=== PATIENT | male | born 1955 | race Caucasian/White ===

== ENCOUNTER 2018-11-03 09:47 | Inpatient (IN) | payer OTHER ==
[2018-11-03] VITALS (34 sets, daily range): BP systolic 75–113; BP diastolic 62–82; PULSE 62–91; RESP 11–24; Ht 170.2 cm; Wt 68.2 kg
[~2018-11-03] VITALS: Ht 170.2 cm; Wt 68.2 kg
[2018-11-03] MEDS ORDERED: ONDANSETRON 4 MG INJ IV STA (09:50)
[2018-11-03] MEDS ORDERED: morphine 4 MG/ML VIAL IV STA (09:50)
[2018-11-03] MEDS ORDERED: HEPARIN 1000 UNITS/ML 10 ML INJ IV STA (09:50)
[2018-11-03] MEDS ORDERED: FENTAnyl 50 MCG/ML VIAL ONE ×2 (09:54→12:07)
[2018-11-03] MEDS ORDERED: NITROGLYCERIN (IC) 100 MCG/ML INJ ONE (09:54)
[2018-11-03] MEDS ORDERED: HEPARIN 1000 UNITS/ML 10 ML INJ ONE (09:54)
[2018-11-03] MEDS ORDERED: MIDAZOLAM 1 MG/ML 2 ML INJ ONE (09:54)
[2018-11-03] MEDS ORDERED: IOHEXOL 350MG/ML 50 ML BTL ONE ×2 (09:54→10:28)
[2018-11-03] MEDS ORDERED: LIDOCAINE 1% (MDV) 20 ML INJ ONE (09:54)
[2018-11-03] MEDS ORDERED: IODIXANOL LOCM 100 ML BTL ONE ×2 (09:54→12:37)
[2018-11-03] MEDS ORDERED: VERAPAMIL 5 MG INJ ONE (09:55)
--- NOTE | 2018-11-03 09:55 | ERD ---
ER Documentation Chief Complaint Chief Complaint Chest pain HPI This is a 62-year-old male has a history of COPD and started having substernal chest pressure last night. The pain was off and on throughout the night and this morning he went to an urgent care and he was found to have inferior ST elevations and EMS was called. The patient was brought in by EMS yet he did not receive any nitroglycerin but because they were unable to get a line on him. He got substernal chest pressure without radiation and some shortness of breath. No diaphoresis no syncope. Pain is currently mild ROS All systems reviewed and are negative except as per history of present illness. Physical Exam Physical Exam Const: No acute distress Head: Atraumatic Eyes: Normal Conjunctiva ENT: Normal External Ears, Nose and Mouth. Neck: Full range of motion. No meningismus. Resp: Clear to auscultation bilaterally Cardio: Regular rate and rhythm, no murmurs Abd: Soft, non tender, non distended. Normal bowel sounds Skin: No petechiae or rashes Back: No midline or flank tenderness Ext: No cyanosis, or edema Neur: Awake and alert Psych: Normal Mood and Affect Procedures/MDM EKG: Rate/Rhythm: Inferior ST elevation QRS, ST, QT: NORMAL MT, QRS, QT] Impression: Inferior STEMI Code STEMI was called Dr. Murdock.was at bedside at 9:48 AM. Panel Saw Operator was activated and are at bedside. Critical Care Time: 30 minutes Treatments/Evaluations: Close monitoring and treatment of unstable vital signs, cardiorespiratory, and neurologic status, while maintaining tight balance of fluid, respiratory, and cardiac interventions. This time includes discussing the case with the patient and the patient's family. This time does not include all procedures stated elsewhere in this record. This time also includes reviewing old records, labs and radiological studies. This time includes examining and re- examining the patient. Additionally, this time also includes arranging care with admitting and consulting physicians. Departure Diagnosis: Primary Impression: STEMI (ST elevation myocardial infarction) Involved coronary artery: right coronary artery Qualified Codes: I21.11 - ST elevation (STEMI) myocardial infarction involving right coronary artery Condition: Serious DAWOOD PRUITT DO Nov 03, 2018 09:55
[2018-11-03] MEDS ORDERED: EPTIFIBATIDE 20 ML ONE (10:27)
[2018-11-03] MEDS ORDERED: BIVALIRUDIN 250MG /NS 50 ML 50 ML IVPB ONE ×3 (10:27→13:16)
[2018-11-03] MEDS ORDERED: EPTIFIBATIDE 100 ML IV ONE (10:27)
[2018-11-03] MEDS ORDERED: ONDANSETRON 4 MG INJ IV PRN ×2 (10:30→19:30)
[2018-11-03] MEDS ORDERED: ACETAMINOPHEN 325 MG TAB PO PRN ×2 (10:30→13:30)
[2018-11-03] MEDS ORDERED: PRASUGREL HYDROCHLORIDE 10 MG TABLET PO ONE (10:32)
[2018-11-03] MEDS ORDERED: ONDANSETRON 4 MG INJ ONE ×2 (10:32→11:42)
[2018-11-03] MEDS ORDERED: ALTEPLASE (CATHFLO) 2 MG INJ CATHETER SCH (11:30)
[2018-11-03] MEDS ORDERED: DOPamine-D5W 1.6 MG/ML 250 ML ONE (12:11)
[2018-11-03] MEDS ORDERED: SOD CHLORIDE 0.9% 1,000 ML IV SCH (13:05)
--- NOTE | 2018-11-03 13:27 | OPR ---
Date/Time of Note Date/Time of Note DATE: 11/03/18 TIME: 13:12 Operative Report Procedure Date: Nov 03, 2018 Preoperative Diagnosis INFERIOR STEMI Postoperative Diagnosis INFERIOR STEMI Operation/Procedure Performed PCI RCA Surgeon see signature line Bull Gang Worker n/ a Anesthesia Type: moderate sedation Estimated Blood Loss: minimal Transfusion none Specimen NONE Grafts/Implants none Complications none Procedure Description Violin Tutor: Kary Polk MD Indication: Inferior ST elevation myocardial infarction This is a 62-year-old gentleman who presented late after about more than 12 hours of chest pain and was found to have more than [address] elevation myocardial infarction with ongoing 9 out of 10 severe pain. Patient was immediately seen by myself in the emergency room is recommended to undergo emergent left heart catheterization coronary angiogram percutaneous coronary intervention Procure performed: #1 Emergent left heart catheterization and selective right and left coronary angiogram #2 Right femoral angiogram 3. Very complex but successful PTCA and stenting of proximal and mid right coronary artery using a 5 x 30 mm and a 5 x 26 mm dilute drug-eluting stents 4. PTCA stenting of the posterior descending artery using a 2.5 x 16 mm Synergy drug-eluting stent 5. Multiple thrombectomy of the right coronary artery and posterolateral artery 6. Ministration of intracoronary nitroglycerin, intracoronary verapamil, and intracoronary tPA 7. Moderate sedation for more than 150 minutes Findings: 1. Left main: is normal and birfurcates to LAD & LCX. 2. LAD: Proximally is aneurysmal and large with 30% % stenosis at proximal LAD, at mid LAD becomes normal size with no significant stenosis. It does not reach the apex 3. Left circumflex artery: is nondominant and small and gives out only one obtuse marginal. He has mild luminal irregularity only 4. RCA: is extremely large and dominant. it was 100% occluded proximally with large amount of thrombus throughout the whole vessel. YESICA 0 flow was noted in the beginning of the procedure. After successful PCI there was no significant residual stenosis left at the proximal mid and distal RCA. PDA had a poor flow (YESICA II ) despite stenting this lesion. RCA is extremely tortuous as well 5. LV EDP is 24 with no significant gradient across the aortic valve: Procedure in detail: Written informed consent with obtained after risks benefits and alternatives discussed with the patient in detail. risks including but not limited to risk of infection vascular complications, bleeding complications, WI stroke arrhythmia renal failure at even were discussed with the patient in detail. Patient was emergently brought into the cardiac skilled laborer and placed in supine position. Right and left groin area was prepped and draped in regular sterile fashion and then he was in anesthetized using 1% lidocaine. JL4 guiding catheter was advanced to engage the left main coronary artery angiographic view was obtained. JR4 GUIDING catheter was advanced and engaged into the right coronary artery and angiographic view was obtained. At this time we decided to perform PCI of the coronary artery. . BMW wire was used and advanced across the lesion and placed distal to the lesion. I used a 2.5 x 12 mm balloon which was placed across the lesion and predilated the v essel. Then I used a Pronto device and multiple runs of thrombectomy was done and multiple large amount of clots were removed. Still patient continue out the significant amount of clot. Another wire was used and with difficulty through the tortuosity cross into the PDA and this vessel was angioplastied by 2.5 mm x 12 mm balloon. Poor flow was noted here. A 2.5 x 16 mm stent with difficulty was advanced across the PDA deployed at 12 claribel. Angiography was obtained. Multiple rounds and thrombectomy with different Pronto thrombectomy device was used a large amount of clot was removed every time. Patient continued to generate significant amount of clot despite being on Angiomax drip, Integrilin drip. Multiple rounds of intracoronary verapamil and nitroglycerin was given as well. I had to give multiple rounds of intracoronary TPA as well as to get a better flow across the distal vessels. Finally proximal and mid RCA was angioplastied using a 3 5 and a 4 oh balloon. Angiography was obtained. Then 5 x 30 mm chronic drug-eluting stent was advanced across the mid RCA deployed at 16 and 18 claribel. Then another 5 x 26 mm drug-eluting stent was used placed proximal to the previous stent deployed at 18 claribel. Balloon was advanced and the stent balloon was inflated at 16 claribel in overlapping area. Finally I used a [id number] noncompliant balloon and postdilated the stent and up to 18 Claribel. Final angiographic view was obtained which showed YESICA-2-3 flow no evidence of dissection and no significant residual stenosis at the site of the stents. Right femoral angiogram was done a pigtail was advanced to engage the left ventricle hemodynamics as recorded by pullback aortic pressure was measured. Patient tolerated the procedure well with no complication. Patient is to be transferred to ICU in stable condition. contrast used: 220 Visipaque Conclusions: Successful complex PTCA lobectomy intracoronary TPA and finally stenting of the right coronary artery from 100% stenosis to no significant residual stenosis using two 5 mm drug-eluting stent stent. Recommendations: Aggressive medical therapy. aspirin indefinitely dual antiplatlet therapy with aspirin and Effient ICU care overnight. Integrilin overnight Angiomax for the next 3 hours KARY POLK MD [facility] KARY POLK MD Nov 03, 2018 13:27
--- NOTE | 2018-11-03 13:28 | CONS ---
Assessment/Plan Assessment/Plan Hospital Course (Demo Recall) Acute inferior lateral/posterior ST elevation myocardial infarction Status post highly complex PCI of the right coronary artery Dyslipidemia Ex-smoker History of DVT Nausea vomiting Recommendations: Continue with ICU care with Integrilin drip given large amount of thrombus. Aspirin and Effient will be continued Beta-dennis is not able to tolerated We will very closely monitor intensive care unit Echocardiogram has been ordered to be done number personally reviewed once is done More than 38 minutes of critical care time was for management treatment is critically ill patient excluding any procedures Thank you for his referral. We will continue to follow along with you KARY POPE MD [facility] Consultation Date/Type/Reason Admit Date/Time Date of Consultation: Nov 03, 2018 Type of Consult Cardiology Reason for Consultation INFERIOR STEMI Requesting Provider: DAWOOD PRUITT DO Date/Time of Note DATE: 11/03/18 TIME: 13:27 Hx of Present Illness Emergent interventional cardiology consultation note Chief complaint: Chest pain Reason for consult: Inferior ST elevation myocardial infarction History of present illness: Thank you for this referral. History was then from the patient discussion with staff and physician review of the old chart This is a 62-year-old gentleman with history of COPD emphysema, history of DVT in the past who presented to the emergency room this morning because of the chest pain which was left-sided severe 9 out of 10 that started last night. EKG done showed marked ST elevation's elevation ME. She was brought into the ER by interior design professional and code STEMI was activated. Patient was immediately seen by myself in the emergency room. EKG showed marked more than [address] elevation in the inferior leads consistent with severe inferior ST elevation myocardial infarction. Patient was emergently taken to the Classified Advertising Clerk angiography done by myself which showed a very large and dominant right coronary artery which was completely occluded with very large amount of intraluminal thrombus there. Patient required Angiomax drip Integrilin drip multiple intracoronary verapamil injection, multiple runs of thrombectomy, and even intracoronary TPA placement. Finally a 2 stent was placed in the RCA and 1. His posterior descending artery Patient is currently in the ICU. Complains of mostly nausea vomiting abdominal pain with no more of the chest p ain that he had prior to his heart attack Allergies: No known drug allergies Medications were reviewed as per medical reconciliation sheet Family history: Mother with coronary artery disease Social history: Ex-smoker. Uses marijuana. Past medical history: As above mentioned Review of system: Patient denies all others except for above-mentioned Past Medical History Home Meds Unable to Obtain Active Prescriptions or Reported Meds Medications Current Medications Ondansetron HCl (Zofran Inj) 4 mg ER BRIDGE PRN IV NAUSEA/VOMITING; Start 11/03/18 at 10:30; Stop 11/04/18 at 10:29 Acetaminophen (Tylenol Tab) 650 mg ER BRIDGE PRN PO .MILD PAIN 1-3 OR TEMP; Start 11/03/18 at 10:30; Stop 11/04/18 at 10:29 Miscellaneous Information (* Miscellaneous Pharmacy Order) Hold all Metformin ... ONCE ONCE XX ; Start 11/03/18 at 13:30; Stop 11/03/18 at 13:31; Status UNV Aspirin (Halfprin) 81 mg DAILY PO ; Start 11/04/18 at 09:00; Status UNV Prasugrel (Effient) 10 mg DAILY PO ; Start 11/03/18 at 13:30 Eptifibatide 100 ml @ 4.091 mls/ hr Q24H IV ; Start 11/03/18 at 13:05; Stop 11/04/18 at 12:04 Bivalirudin 250 mg/Sodium Chloride 500 ml @ 27.27 mls/ hr NOW IV ; Start 11/03/18 at 13:30; Stop 11/03/18 at 16:29; Status UNV Acetaminophen (Tylenol Tab) 650 mg Q4H PRN PO PAIN; Start 11/03/18 at 13:30; Status UNV Oxycodone/ Acetaminophen (Percocet (5/ 325)) 1 tab Q4H PRN PO PAIN; Start 11/03/18 at 13:30 Oxycodone/ Acetaminophen (Percocet (5/ 325)) 2 tab Q4H PRN PO PAIN; Start 11/03/18 at 13:30 Morphine Sulfate (morphine) 1 mg Q1H PRN IV PAIN; Start 11/03/18 at 13:30 Atorvastatin Calcium (Lipitor) 80 mg DAILY@21 PO ; Start 11/03/18 at 21:00; Status UNV Sodium Chloride 1,000 ml @ 100 mls/hr Q10H IV ; Start 11/03/18 at 13:05; Stop 11/03/18 at 23:04 Carvedilol (Coreg) 3.125 mg BID PO ; Start 11/03/18 at 21:00; Status UNV Allergies: Coded Allergies: Unknown: Unable to obtain (Unverified , 11/03/18) Social History Smoking Status: Former smoker Exam/Review of Systems Vital Signs Vitals Vital Signs Date Temp Pulse Resp B/P (MAP) Pulse Ox O2 O2 Flow FiO2 Time Delivery Rate 11/03/18 81 24 120/89 100 Nasal 3.0 09:55 (99) Cannula 11/03/18 98.5 09:47 Exam Exam General: Severe distress in the morning prior to the coronary angiogram. Currently less distress HEENT: NC/AT. pupils are equal. round. NECK: NO JVD. no stridor. CV: RRR. systolic murmur; no gallop or rubs. PULM: no wheezing or rhonchi. GI: SOFT, NT, ND, no rebound or guarding Extremity: trace B/L LE edema. no clubbing. neuro: awake and alert, OX3. Psych: Anxious rectal: deferred : normal EKG prior to intervention has shown normal sinus rhythm with about [address] elevation reciprocal changes. Consider inferolateral ST elevation myocardial infarction. As well as posterior myocardial infarction. EKG postprocedure showed inferior infarct with about [address] elevations very early Labs Result Diagram: 11/03/18 0952 11/03/18 0952 Results 24hrs Laboratory Tests Test 11/03/18 09:52 White Blood Count 15.2 H Red Blood Count 4.85 Hemoglobin 14.9 Hematocrit 45.7 Mean Corpuscular Volume 94.2 Mean Corpuscular Hemoglobin 30.7 Mean Corpuscular Hemoglobin Concent 32.6 Red Cell Distribution Width 11.9 Platelet Count 359 Mean Platelet Volume 8.9 Immature Granulocytes % 0.700 H Neutrophils % 82.6 H Lymphocytes % 9.3 L Monocytes % 7.1 Eosinophils % 0.0 Basophils % 0.3 Nucleated Red Blood Cells % 0.0 Immature Granulocytes # 0.110 H Neutrophils # 12.6 H Lymphocytes # 1.4 Monocytes # 1.1 H Eosinophils # 0.0 Basophils # 0.0 Nucleated Red Blood Cells # 0.0 Prothrombin Time 12.5 Prothrombin Time Ratio 1.0 INR International Normalized Ratio 0.92 Activated Partial Thromboplast Time 23.0 Sodium Level 135 Potassium Level 5.2 H Chloride Level 98 Carbon Dioxide Level 24 Anion Gap 13 Blood Urea Nitrogen 22 H Creatinine 1.21 Est Glomerular Filtrat Rate mL/min > 60 Glucose Level 145 Calcium Level 9.8 Troponin I 13.900 *H Medications Medications Current Medications Ondansetron HCl (Zofran Inj) 4 mg ER BRIDGE PRN IV NAUSEA/VOMITING; Start 11/03/18 at 10:30; Stop 11/04/18 at 10:29 Acetaminophen (Tylenol Tab) 650 mg ER BRIDGE PRN PO .MILD PAIN 1-3 OR TEMP; Start 11/03/18 at 10:30; Stop 11/04/18 at 10:29 Miscellaneous Information (* Miscellaneous Pharmacy Order) Hold all Metformin ... ONCE ONCE XX ; Start 11/03/18 at 13:30; Stop 11/03/18 at 13:31; Status UNV Aspirin (Halfprin) 81 mg DAILY PO ; Start 11/04/18 at 09:00; Status UNV Prasugrel (Effient) 10 mg DAILY PO ; Start 11/03/18 at 13:30 Eptifibatide 100 ml @ 4.091 mls/ hr Q24H IV ; Start 11/03/18 at 13:05; Stop 11/04/18 at 12:04 Bivalirudin 250 mg/Sodium Chloride 500 ml @ 27.27 mls/ hr NOW IV ; Start 11/03/18 at 13:30; Stop 11/03/18 at 16:29; Status UNV Acetaminophen (Tylenol Tab) 650 mg Q4H PRN PO PAIN; Start 11/03/18 at 13:30; Status UNV Oxycodone/ Acetaminophen (Percocet (5/ 325)) 1 tab Q4H PRN PO PAIN; Start 11/03/18 at 13:30 Oxycodone/ Acetaminophen (Percocet (5/ 325)) 2 tab Q4H PRN PO PAIN; Start 08/12 at 13:30 Morphine Sulfate (morphine) 1 mg Q1H PRN IV PAIN; Start 11/03/18 at 13:30 Atorvastatin Calcium (Lipitor) 80 mg DAILY@21 PO ; Start 11/03/18 at 21:00; Status UNV Sodium Chloride 1,000 ml @ 100 mls/hr Q10H IV ; Start 11/03/18 at 13:05; Stop 11/03/18 at 23:04 Carvedilol (Coreg) 3.125 mg BID PO ; Start 11/03/18 at 21:00; Status KANV KARY POPE MD Nov 03, 2018 13:28
[2018-11-03] MEDS: EPTIFIBATIDE 100 ML IV SCH (13:30)
[2018-11-03] MEDS ORDERED: OXYCODONE/ACETAMINOPHEN (5/325) TAB PO PRN ×2 (13:30)
[2018-11-03] MEDS ORDERED: BIVALIRUDIN 250 MG in SOD CHLORIDE 0.9% 500 ML IV SCH (13:30)
[2018-11-03] MEDS: morphine 2 MG INJ IV PRN ×4 (14:03→23:21)
--- NOTE | 2018-11-03 15:25 | RADRPT ---
Vent Rate: 78 bpm RR Interval: 0 msec KS Interval: 156 msec QRS Duration: 94 msec QT Interval: 368 msec QTC Interval: 419 msec P-R-T [place]: 74 - -37 - 73 degrees Normal sinus rhythm Left axis deviation RSR ` orattern in V1 suggests right ventricular conduction delay Lateral infarct , possibly acute Inferior-posterior infarct , possibly acute ACUTE DE Abnormal ECG Electronically Signed By: Magdy Torres
[2018-11-03] MEDS ORDERED: ZOLPIDEM 5 MG TAB PO PRN (17:00)
[2018-11-03] MEDS: PRASUGREL HYDROCHLORIDE 10 MG TABLET PO SCH (17:53)
--- NOTE | 2018-11-03 18:09 | HP ---
DATE OF ADMISSION: 11/03/2018 PRESENTING COMPLAINT: Chest pain. HISTORY OF PRESENTING COMPLAINT: A 62-year-old male whose past medical history is positive for COPD, who presented to the emergency room today with intermittent chest pain that actually started a few d ays ago, but seemed to get worse last night. The patient has few times ____ to wake up from sleep fr om the chest pain and first thing this morning he said he goes on urgent care to get assessed. [facility] his E[facility] was found to be abnormal and so he was sent to the emergency room. In the [facility] room, the EKG was done again and he was found to have an ST elevation myocardial infarction barrera ggestive of an inferior wall MT and code STEMI was activated. [facility] general lab[facility]. In the warehouse general laborer, he was found to have diffuse coronary artery disease and there was 100% occlusion in the large, dominant RCA with a large amount of thrombus. This is likely the culprit le vitaly and PCI was done successfully without residual stenosis. At this time, he is being observed in the intensive care unit in followup. The patient had some shortness of breath, ____. No cough, no f ever. No passing out episode. No lower extremity edema. No dysuria or hematuria. No melenic stool s. No history of nausea, vomiting. PAST MEDICAL HISTORY: COPD. HOME MEDICATIONS: The patient has no documented home medications. FAMILY HISTORY: No family history of premature coronary artery disease. SOCIAL HISTORY: Remote smoker. Last cigarette use was about 6 to 7 years ago. He also has a remote history of substance use, occasional alcohol drinker. ALLERGIES: HE HAS NO KNOWN DRUG ALLERGIES. PHYSICAL EXAMINATION VITAL SIGNS: Temperature 97.8, pulse 75, respirations 14, blood pressure 101/63, saturations 96% on room air. GENERAL: The patient is alert and oriented, in no distress, currently somewhat lethargic. HEENT: Head is normocephalic without evidence of trauma. Pupils are equal, round and reactive. Muc ous membranes are moist. There is no scleral jaundice. Conjunctivae are pallor. Posterior pharynx is clear of erythema and exudate. NECK: Supple and nontender. CHEST: Clear to auscultation. Diminished breath sounds bilaterally. CARDIOVASCULAR: Heart sounds S1 and S2. No added sounds or murmurs. ABDOMEN: Soft, nontender, nondistended. There is no lower extremity edema. SKIN: Devoid of rash or jaundice. LABORATORY VALUES: Following pertinent findings were noted on admission with a potassium of 5.2, BUN of 22. His hematology: He had a leukocytosis of 15,000 with neutrophil predominance without bandem ia. Troponin was initially 13.9 on admission. It went up as high as 341. Creatinine kinase is 5757 . Triglyceride level is elevated at 244, total cholesterol was also elevated at 214, LDL is elevated at 32. IMAGING: He had a chest x-ray that showed mild cardiomegaly and EKG consistent with inferior wall my ocardial infarction. ASSESSMENT AND PLAN: A 62-year-old male who presented with intermittent chest pain in midsternal reg ion currently admitted to the ICU and managed as follows: 1. Inferior wall ST elevation myocardial infarction, status post emergent left heart catheterization that found culprit lesion of 100% occluded RCA with large amount of thrombus, status post successful PCI. Cardiology final recommendations include aggressive medical therapy, indefinite use of aspirin , double antiplatelet therapy with aspirin and Effient and Angiomax for the next 3 hours. 2. Somewhat of chronic obstructive pulmonary disease/emphysema. No gross evidence of exacerbation a t this time. Bronchodilator therapy as needed. 3. Reactive leukocytosis, likely secondary to #1: Monitor. 4. Hyperkalemia: Improved on subsequent BMP. 5. Rhabdomyolysis: Trend levels, gentle hydration as tolerated. 6. Dyslipidemia with hypertriglyceridemia and elevated total cholesterol as well as a LDL not at goa l: The patient is on high dose statin therapy. 7. Transaminitis: We will trend. It could be reactive. 8. Rule out diabetes mellitus and thyroid disease as well with hemoglobin A1c and TSH. DISPOSITION: Continue ICU overnight monitoring. Reevaluate in the morning. Cardiology also will fo llow. We appreciate the emergency input. Further interventions will depend on his clinical course. Please note that the patient's AST is also more than twice ALT. This could be related to his rhabdo myolysis. We will also screen for hepatitis and consider getting liver ultrasound if levels do not t rend down. Dictated By: BECKI CANTU MD BA/RABIA Conf#: [id number] DID#: [id number] CC: KARY POPE MD;*[facility]*
[2018-11-03] MEDS ORDERED: ATROPINE 1 MG/10 ML SYRINGE ONE (18:14)
[2018-11-03] MEDS ORDERED: ATORVASTATIN 80 MG TAB PO SCH (21:00)
[2018-11-03] MEDS ORDERED: NITROGLYCERIN 50 MG/D5W (PMX) 250 ML IV SCH (21:00)
[2018-11-03] MEDS ORDERED: NITROGLYCERIN 50 MG/D5W (PMX) 250 ML ONE (21:00)
[2018-11-03] MEDS: DOCUSATE SODIUM 100 MG CAP PO SCH (21:06)
[2018-11-03] MEDS ORDERED: ACETAMINOPHEN 1000MG/100ML IV 100 ML IVPB ONE (21:30)
[2018-11-03] MEDS: NITROGLYCERIN (SL) 0.4 MG TAB SL PRN ×3 (21:36→21:59)
[2018-11-04] VITALS (36 sets, daily range): BP systolic 75–111; BP diastolic 46–92; PULSE 85–121; RESP 14–33
[2018-11-04] MEDS: EPTIFIBATIDE 100 ML IV SCH (00:35)
[2018-11-04] MEDS ORDERED: CEPASTAT LOZENGE MT PRN (01:00)
[2018-11-04] MEDS ORDERED: LORAZEPAM 2 MG INJ IV ONE (01:30)
[2018-11-04] MEDS: morphine 2 MG INJ IV PRN ×3 (02:00→13:47)
--- NOTE | 2018-11-04 07:07 | CONS ---
Consult Date/Type/Reason Admit Date/Time Nov 03, 2018 at 10:06 Initial Consult Date 11/03/18 Type of Consultation: cv Requesting Provider: DAWOOD PRUITT DO Date/Time of Note DATE: 11/04/18 TIME: 07:03 Subjective Interventional cardiology follow-up progress note Subjective: Discussed with multiple staff and physicians. Telemetry was reviewed. Patient remains in normal sinus rhythm/sinus tachycardia Patient complains of multiple pain including his abdomen. Also chest pain which appears to be mostly pleuritic and different his [place]/presentation pain Patient has been started on nitroglycerin drip overnight. Objective: General: Appears agitated and in distress HEENT: NC/AT. pupils are equal. round. NECK: NO JVD. no stridor. CV: RRR. systolic murmur; no gallop or rubs. PULM: Rhonchi GI: SOFT, + tender to palpation, ND, no rebound or guarding Extremity: trace B/L LE edema. no clubbing. neuro: awake and alert, OX3. Psych: Agitated rectal: deferred : normal Vascular: Right femoral no bleeding no hematoma no bruit noted EKG from November 21, 2018 was reviewed which shows sinus tachycardia. Inferior infarct age undetermined. ST elevation has significantly decreased compared to the prior to the PCI Chest x-ray done November 04, 2018 shows:1. Cardiomegaly.2. Mild patchy bibasilar atelectasis. Objective Vitals Vital Signs Date Temp Pulse Resp B/P (MAP) Pulse Ox O2 O2 Flow FiO2 Time Delivery Rate 11/04/18 109 33 111/88 100 Nasal 06:00 (96) Cannula 11/04/18 98.0 04:00 11/03/18 5.0 21:00 Intake and Output 11/03/18 11/03/18 11/04/18 1515:00 23:00 07:00 IntakeIntake Total 97.27 ml 754.27 ml 68.5 ml OutputOutput Total 300 ml 250 ml 180 ml BalanceBalance -202.73 ml 504.27 ml -111.5 ml Results/Medications Result Diagram: 11/04/18 0431 11/04/18 0432 Results 24 hrs Laboratory Tests Test 11/03/18 09:52 11/03/18 14:10 11/04/18 04:31 11/04/18 04:32 White Blood Count 15.2 H 18.1 H Red Blood Count 4.85 3.91 L Hemoglobin 14.9 12.2 L Hematocrit 45.7 37.7 L Mean Corpuscular 94.2 96.4 Volume Mean Corpuscular 30.7 31.2 Hemoglobin Mean Corpuscular 32.6 32.4 Hemoglobin Concent Red Cell 11.9 12.4 Distribution Width Platelet Count 359 194 # Mean Platelet Volume 8.9 10.0 Immature 0.700 H 0.600 H Granulocytes % Neutrophils % 82.6 H 77.3 H Lymphocytes % 9.3 L 9.4 L Monocytes % 7.1 12.4 H Eosinophils % 0.0 0.1 Basophils % 0.3 0.2 Nucleated Red Blood 0.0 0.0 Cells % Immature 0.110 H 0.100 H Granulocytes # Neutrophils # 12.6 H 14.0 H Lymphocytes # 1.4 1.7 Monocytes # 1.1 H 2.2 H Eosinophils # 0.0 0.0 Basophils # 0.0 0.0 Nucleated Red Blood 0.0 0.0 Cells # Prothrombin Time 12.5 Prothrombin Time 1.0 Ratio INR International 0.92 Normalized Ratio Activated 23.0 Partial Thromboplast Time Sodium Level 135 135 137 Potassium Level 5.2 H 4.7 4.8 Chloride Level 98 103 100 Carbon Dioxide Level 24 22 28 Anion Gap 13 10 9 Blood Urea Nitrogen 22 H 20 23 H Creatinine 1.21 0.87 1.12 Est Glomerular > 60 > 60 > 60 Filtrat Rate mL/min Glucose Level 145 114 111 Calcium Level 9.8 8.6 9.0 Troponin I 13.900 *H 341.000 *H 173.000 *H Magnesium Level 2.1 2.0 Total Bilirubin 0.5 0.8 Direct Bilirubin 0.00 0.00 Indirect Bilirubin 0.5 0.8 Aspartate Amino 547 H 659 H Transf (AST/SGOT) Alanine 83 H 117 H Aminotransferase (AL T/SGPT) Alkaline Phosphatase 64 60 Creatine Kinase 5757 H 5334 H Creatine Kinase 6.2 6.0 Index Creatinine Kinase MB 357.00 H 320.00 H (Mass) Total Protein 6.6 6.7 Albumin 3.9 4.0 Globulin 2.70 2.70 Albumin/Globulin 1.44 1.48 Ratio Triglycerides Level 244 H 168 H Cholesterol Level 214 H 190 LDL Cholesterol, 132 123 Calculated HDL Cholesterol 33 33 Cholesterol/HDL 6.4 5.7 Ratio Free Thyroxine 0.74 L Hepatitis B Surface NEGATIVE Antigen Hepatitis B Core NEGATIVE Total Antibody Hepatitis C Antibody NEGATIVE B-Type Natriuretic 1510 H Peptide Thyroid Stimulating 1.460 Hormone (TSH) Hepatitis B Surface NEGATIVE Antibody Home Meds Unable to Obtain Active Prescriptions or Reported Meds Medications Current Medications Aspirin (Halfprin) 81 mg DAILY PO ; Start 11/04/18 at 09:00 Prasugrel (Effient) 10 mg DAILY PO Last administered on 11/03/18at 17:53; Admin Dose 10 MG; Start 11/03/18 at 13:30 Eptifibatide 100 ml @ 4.091 mls/ hr Q24H IV Last administered on 11/04/18at 00:35; Admin Dose 4.091 MLS/HR; Start 11/03/18 at 13:05; Stop 11/04/18 at 13:00 Acetaminophen (Tylenol Tab) 650 mg Q4H PRN PO PAIN; Start 11/03/18 at 13:30 Oxycodone/ Acetaminophen (Percocet (5/ 325)) 1 tab Q4H PRN PO PAIN; Start 11/03/18 at 13:30 Oxycodone/ Acetaminophen (Percocet (5/ 325)) 2 tab Q4H PRN PO PAIN; Start 11/03/18 at 13:30 Morphine Sulfate (morphine) 1 mg Q1H PRN IV PAIN Last administered on 11/04/18at 04:47; Admin Dose 1 MG; Start 11/03/18 at 13:30 Atorvastatin Calcium (Lipitor) 80 mg DAILY@21 PO Last administered on 11/03/18 21:06; Admin Dose 80 MG; Start 11/03/18 at 21:00 Carvedilol (Coreg) 3.125 mg BID PO Last administered on 11/03/18 21:06; Admin Dose 3.125 MG; Start 11/03/18 at 21:00 Zolpidem Tartrate (Ambien) 5 mg HS MAY REPEAT X 1 PRN PO INSOMNIA Last administered on 11/03/18at 23:47; Admin Dose 5 MG; Start 11/03/18 at 17:00 Docusate Sodium (Colace) 100 mg BID PO Last administered on 11/03/18 21:06; Admin Dose 100 MG; Start 11/03/18 at 21:00 Ondansetron HCl (Zofran Inj) 4 mg Q4H PRN IV NAUSEA AND/OR VOMITING; Start 11/03/18 at 19:30 Simethicone (Mylicon) 80 mg Q6H PRN PO DISTENSION/GAS/BLOATING Last administered on 11/03/18 21:56; Admin Dose 80 MG; Start 11/03/18 at 20:00 Nitroglycerin (Nitroglycerin (Sl Tab) 0.4 Mg) 1 tab Q5M PRN SL ANGINA Last administered on 11/03/18 21:59; Admin Dose 1 TAB; Start 11/03/18 at 21:00 Nitroglycerin/ Dextrose 250 ml @ 0 mls/hr TITRATE IV Last administered on 11/03/18 21:03; Admin Dose 5 MLS/HR; Start 11/03/18 at 21:00 Phenol (Cepastat Lozenge) 1 lozenge Q1H PRN MT throat pain Last administered on 11/04/18 01:13; Admin Dose 1 LOZENGE; Start 11/04/18 at 01:00 Assessment/Plan Hospital Course (Demo Recall) Acute inferior lateral/posterior ST elevation myocardial infarction Status post highly complex PCI of the right coronary artery Dyslipidemia Ex-smoker History of DVT Nausea vomiting diffuse abd pain Recommendations: Continue with ICU care and complete Integrilin drip given large amount of thrombus. Aspirin and Effient will be continued Beta-dennis as long as able to tolerated START Dig We will very closely monitor intensive care unit NTG drip prn We will start the patient on PPI will start lovenox for now LE U/S to r/o acute DVT. ( pt with history of DVT ) Echocardiogram has been ordered to be done number personally reviewed once is done More than 35 minutes of critical care time was for management treatment is critically ill patient excluding any procedures Thank you for his referral. We will continue to follow along with you KARY POPE MD [facility] KARY POEP MD Nov 04, 2018 07:06
[2018-11-04] MEDS: DOCUSATE SODIUM 100 MG CAP PO SCH ×2 (08:13→20:42)
[2018-11-04] MEDS: PRASUGREL HYDROCHLORIDE 10 MG TABLET PO SCH (08:14)
[2018-11-04] MEDS: ASPIRIN (EC) 81 MG TAB PO SCH (08:14)
--- NOTE | 2018-11-04 08:41 | PN ---
Date/Time of Note Date/Time of Note DATE: 11/04/18 TIME: 08:41 Assessment/Plan Lines/Catheters IV Catheter Type ([facility] Peripheral IV Urinary Cath still in place: No Assessment/Plan Result Diagram: 11/04/181 11/04/18 0432 Results 24hrs Laboratory Tests Test 11/03/18 09:52 11/03/18 14:10 11/04/18 04:31 11/04/18 04:32 White Blood Count 15.2 H 18.1 H Red Blood Count 4.85 3.91 L Hemoglobin 14.9 12.2 L Hematocrit 45.7 37.7 L Mean Corpuscular 94.2 96.4 Volume Mean Corpuscular 30.7 31.2 Hemoglobin Mean Corpuscular 32.6 32.4 Hemoglobin Concent Red Cell 11.9 12.4 Distribution Width Platelet Count 359 194 # Mean Platelet Volume 8.9 10.0 Immature 0.700 H 0.600 H Granulocytes % Neutrophils % 82.6 H 77.3 H Lymphocytes % 9.3 L 9.4 L Monocytes % 7.1 12.4 H Eosinophils % 0.0 0.1 Basophils % 0.3 0.2 Nucleated Red Blood 0.0 0.0 Cells % Immature 0.110 H 0.100 H Granulocytes # Neutrophils # 12.6 H 14.0 H Lymphocytes # 1.4 1.7 Monocytes # 1.1 H 2.2 H Eosinophils # 0.0 0.0 Basophils # 0.0 0.0 Nucleated Red Blood 0.0 0.0 Cells # Prothrombin Time 12.5 Prothrombin Time 1.0 Ratio INR International 0.92 Normalized Ratio Activated 23.0 Partial Thromboplast Time Sodium Level 135 135 137 Potassium Level 5.2 H 4.7 4.8 Chloride Level 98 103 100 Carbon Dioxide Level 24 22 28 Anion Gap 13 10 9 Blood Urea Nitrogen 22 H 20 23 H Creatinine 1.21 0.87 1.12 Est Glomerular > 60 > 60 > 60 Filtrat Rate mL/min Glucose Level 145 114 111 Calcium Level 9.8 8.6 9.0 Troponin I 13.900 *H 341.000 *H 173.000 *H Magnesium Level 2.1 2.0 Total Bilirubin 0.5 0.8 Direct Bilirubin 0.00 0.00 Indirect Bilirubin 0.5 0.8 Aspartate Amino 547 H 659 H Transf (AST/SGOT) Alanine 83 H 117 H Aminotransferase (AL T/SGPT) Alkaline Phosphatase 64 60 Creatine Kinase 5757 H 5334 H Creatine Kinase 6.2 6.0 Index Creatinine Kinase MB 357.00 H 320.00 H (Mass) Total Protein 6.6 6.7 Albumin 3.9 4.0 Globulin 2.70 2.70 Albumin/Globulin 1.44 1.48 Ratio Triglycerides Level 244 H 168 H Cholesterol Level 214 H 190 LDL Cholesterol, 132 123 Calculated HDL Cholesterol 33 33 Cholesterol/HDL 6.4 5.7 Ratio Hemoglobin A1c 5.4 Free Thyroxine 0.74 L Hepatitis B Surface NEGATIVE Antigen Hepatitis B Core NEGATIVE Total Antibody Hepatitis C Antibody NEGATIVE B-Type Natriuretic 1510 H Peptide Thyroid Stimulating 1.460 Hormone (TSH) Hepatitis B Surface NEGATIVE Antibody Exam/Review of Systems Exam Vitals Vital Signs Date Temp Pulse Resp B/P (MAP) Pulse Ox O2 O2 Flow FiO2 Time Delivery Rate 11/04/18 111 25 104/84 98 Nasal 07:00 (91) Cannula 11/04/18 98.0 04:00 11/03/18 5.0 21:00 Intake and Output 11/03/18 11/03/18 11/04/18 1515:00 23:00 07:00 IntakeIntake Total 97.27 ml 754.27 ml 68.5 ml OutputOutput Total 300 ml 250 ml 280 ml BalanceBalance -202.73 ml 504.27 ml -211.5 ml Results Results 24hrs Laboratory Tests Test 11/03/18 09:52 11/03/18 14:10 11/04/18 04:31 11/04/18 04:32 White Blood Count 15.2 H 18.1 H Red Blood Count 4.85 3.91 L Hemoglobin 14.9 12.2 L Hematocrit 45.7 37.7 L Mean Corpuscular 94.2 96.4 Volume Mean Corpuscular 30.7 31.2 Hemoglobin Mean Corpuscular 32.6 32.4 Hemoglobin Concent Red Cell 11.9 12.4 Distribution Width Platelet Count 359 194 # Mean Platelet Volume 8.9 10.0 Immature 0.700 H 0.600 H Granulocytes % Neutrophils % 82.6 H 77.3 H Lymphocytes % 9.3 L 9.4 L Monocytes % 7.1 12.4 H Eosinophils % 0.0 0.1 Basophils % 0.3 0.2 Nucleated Red Blood 0.0 0.0 Cells % Immature 0.110 H 0.100 H Granulocytes # Neutrophils # 12.6 H 14.0 H Lymphocytes # 1.4 1.7 Monocytes # 1.1 H 2.2 H Eosinophils # 0.0 0.0 Basophils # 0.0 0.0 Nucleated Red Blood 0.0 0.0 Cells # Prothrombin Time 12.5 Prothrombin Time 1.0 Ratio INR International 0.92 Normalized Ratio Activated 23.0 Partial Thromboplast Time Sodium Level 135 135 137 Potassium Level 5.2 H 4.7 4.8 Chloride Level 98 103 100 Carbon Dioxide Level 24 22 28 Anion Gap 13 10 9 Blood Urea Nitrogen 22 H 20 23 H Creatinine 1.21 0.87 1.12 Est Glomerular > 60 > 60 > 60 Filtrat Rate mL/min Glucose Level 145 114 111 Calcium Level 9.8 8.6 9.0 Troponin I 13.900 *H 341.000 *H 173.000 *H Magnesium Level 2.1 2.0 Total Bilirubin 0.5 0.8 Direct Bilirubin 0.00 0.00 Indirect Bilirubin 0.5 0.8 Aspartate Amino 547 H 659 H Transf (AST/SGOT) Alanine 83 H 117 H Aminotransferase (AL T/SGPT) Alkaline Phosphatase 64 60 Creatine Kinase 5757 H 5334 H Creatine Kinase 6.2 6.0 Index Creatinine Kinase MB 357.00 H 320.00 H (Mass) Total Protein 6.6 6.7 Albumin 3.9 4.0 Globulin 2.70 2.70 Albumin/Globulin 1.44 1.48 Ratio Triglycerides Level 244 H 168 H Cholesterol Level 214 H 190 LDL Cholesterol, 132 123 Calculated HDL Cholesterol 33 33 Cholesterol/HDL 6.4 5.7 Ratio Hemoglobin A1c 5.4 Free Thyroxine 0.74 L Hepatitis B Surface NEGATIVE Antigen Hepatitis B Core NEGATIVE Total Antibody Hepatitis C Antibody NEGATIVE B-Type Natriuretic 1510 H Peptide Thyroid Stimulating 1.460 Hormone (TSH) Hepatitis B Surface NEGATIVE Antibody Medications Medication Current Medications Aspirin (Halfprin) 81 mg DAILY PO Last administered on 11/04/18at 08:14; Admin Dose 81 MG; Start 11/04/18 at 09:00 Prasugrel (Effient) 10 mg DAILY PO Last administered on 11/04/18at 08:14; Admin Dose 10 MG; Start 11/03/18 at 13:30 Eptifibatide 100 ml @ 4.091 mls/ hr Q24H IV Last administered on 11/04/18 00:35; Admin Dose 4.091 MLS/HR; Start 11/03/18 at 13:05; Stop 11/04/18 at 13:00 Acetaminophen (Tylenol Tab) 650 mg Q4H PRN PO PAIN; Start 11/03/18 at 13:30 Oxycodone/ Acetaminophen (Percocet (5/ 325)) 1 tab Q4H PRN PO PAIN; Start 11/03/18 at 13:30 Oxycodone/ Acetaminophen (Percocet (5/ 325)) 2 tab Q4H PRN PO PAIN Last administered on 11/04/18 08:13; Admin Dose 2 TAB; Start 11/03/18 at 13:30 Morphine Sulfate (morphine) 1 mg Q1H PRN IV PAIN Last administered on 11/04/18 04:47; Admin Dose 1 MG; Start 11/03/18 at 13:30 Carvedilol (Coreg) 3.125 mg BID PO Last administered on 11/04/18 08:14; Admin Dose 3.125 MG; Start 11/03/18 at 21:00 Zolpidem Tartrate (Ambien) 5 mg HS MAY REPEAT X 1 PRN PO INSOMNIA Last administered on 11/03/18 23:47; Admin Dose 5 MG; Start 11/03/18 at 17:00 Docusate Sodium (Colace) 100 mg BID PO Last administered on 11/04/18 08:13; Admin Dose 100 MG; Start 11/03/18 at 21:00 Ondansetron HCl (Zofran Inj) 4 mg Q4H PRN IV NAUSEA AND/OR VOMITING; Start at 19:30 Simethicone (Mylicon) 80 mg Q6H PRN PO DISTENSION/GAS/BLOATING Last administered on 11/03/18 21:56; Admin Dose 80 MG; Start 11/03/18 at 20:00 Nitroglycerin (Nitroglycerin (Sl Tab) 0.4 Mg) 1 tab Q5M PRN SL ANGINA Last administered on 11/03/18 21:59; Admin Dose 1 TAB; Start 11/03/18 at 21:00 Nitroglycerin/ Dextrose 250 ml @ 0 mls/hr TITRATE IV Last administered on 3/12/19at 21:03; Admin Dose 5 MLS/HR; Start 11/03/18 at 21:00 Phenol (Cepastat Lozenge) 1 lozenge Q1H PRN MT throat pain Last administered on 11/04/18at 01:13; Admin Dose 1 LOZENGE; Start 11/04/18 at 01:00 Pantoprazole (Protonix Iv) 40 mg BID@06,18 IV ; Start 11/04/18 at 18:00 Atorvastatin Calcium (Lipitor) 40 mg DAILY@21 PO ; Start 11/04/18 at 21:00 BECKI CANTU Nov 04, 2018 08:41
[2018-11-04] MEDS ORDERED: NA PHOSPHATE/BIPHOS 133 ML ENEMA PR ONE (09:00)
[2018-11-04] MEDS ORDERED: MAGNESIUM CITRATE 300 ML BTL PO PRN (09:00)
--- NOTE | 2018-11-04 09:02 | RADRPT ---
Echocardiogram Report Patient Name: BLAISE TALBERTPatient ID: [id number] : 1955 (62y 12m)Study Date: 11/04/2018 7:41:30 AM Gender: MAccession #: [id number] Tech: Randy Weldon RDCS Location: [facility] Ref.Physician: KARY POLK Height(Cm): BSA: Weight(Kg): Quality: AdequateAccount #: Procedures: Echocardiographic Report: Transthoracic echocardiogram with complete 2D, M-Mode, and doppler examination. Indications: Evaluate Left Ventricular function. Measurements: 2D/M Mode Doppler Measurement Value Normal Range Measurement Value Normal Range LVIDd 2D 4.6 [ 4.2 - 5.8 ] cm AV Peak Jimmy 1.2 [ 100.0 - 170.0 ] cm/sec LVIDs 2D 4.1 [ 2.5 - 4.0 ] cm AV Peak PG 6.0 [ 2.0 - 9.0 ] mmHg LVPWd 2D 1.3 [ 0.6 - 1.0 ] cm LVOT Peak Jimmy 0.8 [ 70.0 - 110.0 ] cm/sec IVSd 2D 1.3 [ 0.6 - 1.0 ] cm LVOT Peak PG 3.0 [ 2.0 - 6.0 ] mmHg AoR Diam 2D 3.0 [ 2.6 - 3.4 ] cm EDV 2D 98.8 [ 62.0 - 150.0 ] ml ESV 2D 72.1 [ 21.0 - 61.0 ] ml EF 2D 27.0 [ 52.0 - 72.0 ] percent LA Dimen 2D 3.2 [ 3.0 - 4.0 ] cm Findings: Left Ventricle: Normal left ventricular cavity size. Mild concentric left ventricular hypertrophy. Severe global left ventricular systolic dysfunction. Ejection fraction is visually estimated at 40 %. Abnormal Diastolic Function. These segments of the LV are hypokinetic inferior base segment, inferior mid segment and inferior apex segment. Right Ventricle: Normal right ventricular size. Normal right ventricular systolic function. Left Atrium: The left atrium is normal in size. Right Atrium: The right atrium is normal in size. Mitral Valve: Normal appearance of the mitral valve. Mild mitral annular calcification. Trace mitral regurgitation. Aortic Valve: No significant aortic stenosis or insufficiency. Aortic cusps appear mildly calcified. Tricuspid Valve: Normal appearance of the tricuspid valve. Unable to obtain RVSP due to minimal presence of tricuspid regurgitation. Pulmonic Valve: Normal pulmonic valve appearance. Pericardium: Normal pericardium with no significant pericardial effusion. Aorta: Normal aortic root. IVC: Normal size and normal respiratory collapse consistent with normal right atrial pressure. Conclusions: Normal left ventricular cavity size. Mild concentric left ventricular hypertrophy. Severe global left ventricular systolic dysfunction. Ejection fraction is visually estimated at 40 %. Abnormal Diastolic Function. These segments of the LV are hypokinetic inferior base segment, inferior mid segment and inferior apex segment. Normal appearance of the mitral valve. Mild mitral annular calcification. Trace mitral regurgitation. No significant aortic stenosis or insufficiency. Aortic cusps appear mildly calcified. Normal appearance of the tricuspid valve. Unable to obtain RVSP due to minimal presence of tricuspid regurgitation. Normal pericardium with no significant pericardial effusion. Electronically Signed By: Kary Polk 2018-11-04 09:01:13 PDT
[2018-11-04] MEDS: POLYETHYLENE GLYCOL 17 GM PACKET PO SCH (09:23)
[2018-11-04] MEDS ORDERED: DIGOXIN 500 MCG INJ IV ONE (09:30)
[2018-11-04] MEDS: ENOXAPARIN 60 MG/0.6 ML SYG SC SCH ×2 (09:32→20:50)
[2018-11-04] MEDS: DIGOXIN 0.125 MG TAB PO SCH (13:43)
[2018-11-04] MEDS: HALOPERIDOL 5 MG INJ IM PRN (13:47)
[2018-11-04] MEDS: CHLORDIAZEPOXIDE 25 MG CAP PO SCH ×2 (15:18→20:42)
[2018-11-04] MEDS: LORAZEPAM 2 MG INJ IV PRN ×2 (15:42→17:20)
--- NOTE | 2018-11-04 16:04 | RADRPT ---
Vent Rate: 81 bpm RR Interval: 0 msec MI Interval: 160 msec QRS Duration: 108 msec QT Interval: 364 msec QTC Interval: 422 msec P-R-T [place]: 73 - -66 - 40 degrees Normal sinus rhythm Left axis deviation Left ventricular hypertrophy with repolarization abnormality Inferior-posterior infarct , possibly acute Anterolateral infarct , age undetermined ACUTE [place] Abnormal ECG Electronically Signed By: Magdy Torres
--- NOTE | 2018-11-04 16:04 | RADRPT ---
Vent Rate: 109 bpm RR Interval: 0 msec AR Interval: 170 msec QRS Duration: 94 msec QT Interval: 320 msec QTC Interval: 430 msec P-R-T [place]: 68 - -61 - 22 degrees Sinus tachycardia Left axis deviation RSR ` orattern in V1 suggests right ventricular conduction delay Lateral infarct , possibly acute Inferior infarct , possibly acute ACUTE [place] Abnormal ECG Electronically Signed By: Magdy Torres
[2018-11-04] MEDS: PANTOPRAZOLE 40 MG INJ IV SCH (17:48)
[2018-11-04] MEDS ORDERED: LORAZEPAM 2 MG INJ IV PRN (18:30)
[2018-11-04] MEDS ORDERED: DEXMEDETOMIDINE HCL 200 MCG in SOD CHLORIDE 0.9% 48 ML IV SCH (19:00)
[2018-11-04] MEDS: ATORVASTATIN 40 MG TAB PO SCH (20:43)
[2018-11-05] VITALS (29 sets, daily range): BP systolic 75–108; BP diastolic 52–80; PULSE 87–118; RESP 22–40
[2018-11-05] MEDS: PANTOPRAZOLE 40 MG INJ IV SCH (05:47)
[2018-11-05] MEDS: DEXMEDETOMIDINE HCL 200 MCG in SOD CHLORIDE 0.9% 48 ML IV SCH ×3 (07:33→21:55)
[2018-11-05] MEDS: HALOPERIDOL 5 MG INJ IM PRN (08:01)
[2018-11-05] MEDS: ENOXAPARIN 60 MG/0.6 ML SYG SC SCH (08:03)
[2018-11-05] MEDS: POLYETHYLENE GLYCOL 17 GM PACKET PO SCH (08:08)
[2018-11-05] MEDS: ASPIRIN (EC) 81 MG TAB PO SCH (08:09)
[2018-11-05] MEDS: CHLORDIAZEPOXIDE 25 MG CAP PO SCH ×3 (08:09→20:45)
[2018-11-05] MEDS: PRASUGREL HYDROCHLORIDE 10 MG TABLET PO SCH (08:09)
[2018-11-05] MEDS: THIAMINE 100 MG TAB PO SCH (08:09)
[2018-11-05] MEDS: DOCUSATE SODIUM 100 MG CAP PO SCH ×2 (08:09→20:44)
[2018-11-05] MEDS: FOLIC ACID 1 MG TAB PO SCH (08:09)
[2018-11-05] MEDS: MULTIVITAMINS THERAPEUTIC TAB PO SCH (08:09)
--- NOTE | 2018-11-05 08:32 | CONS ---
Consult Date/Type/Reason Admit Date/Time Nov 03, 2018 at 10:06 Initial Consult Date 11/03/18 Type of Consultation: cv Requesting Provider: DAWOOD PRUITT DO Date/Time of Note DATE: 11/05/18 TIME: 08:26 Subjective Interventional cardiology follow-up progress note Subjective: Discussed with multiple staff and physicians. Telemetry was reviewed. Patient remains in normal sinus rhythm/sinus tachycardia She has been confused and agitated overnight. Has been given multiple sedatives and finally to be paced on Precedex Objective: General: sedated HEENT: NC/AT. pupils are equal. round. NECK: NO JVD. no stridor. CV: RRR. systolic murmur; no gallop or rubs. PULM: mild Rhonchi GI: SOFT, no tender to palpation, ND, no rebound or guarding Extremity: trace B/L LE edema. no clubbing. neuro: sedated Psych:calm rectal: deferred : normal Vascular: Right femoral no bleeding no hematoma no bruit noted EKG from November 21, 2018 was reviewed which shows sinus tachycardia. Inferior infarct age undetermined. ST elevation has significantly decreased compared to the prior to the PCI Chest x-ray done November 04, 2018 shows:1. Cardiomegaly.2. Mild patchy bibasilar atelectasis. Lower extremity ultrasound: No DVT Echocardiogram was personally reviewed which shows: Normal left ventricular cavity size. Mild concentric left ventricular hypertrophy. Severe global left ventricular systolic dysfunction. Ejection fraction is visually estimated at 40 %. Abnormal Diastolic Function. These segments of the LV are hypokinetic inferior base segment, inferior mid segment and inferior apex segment. Normal appearance of the mitral valve. Mild mitral annular calcification. Trace mitral regurgitation. No significant aortic stenosis or insufficiency. Aortic cusps appear mildly calcified. Normal appearance of the tricuspid valve. Unable to obtain RVSP due to minimal presence of tricuspid regurgitation. Normal pericardium with no significant pericardial effusion. Objective Vitals Vital Signs Date Temp Pulse Resp B/P (MAP) Pulse Ox O2 O2 Flow FiO2 Time Delivery Rate 11/05/18 99 25 87/61 (70) 93 Nasal 06:00 Cannula 11/05/18 100.3 04:00 11/04/18 4.0 20:00 Intake and Output 11/04/18 11/04/18 11/05/18 1414:59 22:59 06:59 IntakeIntake Total 151.08 ml 192.82 ml 27.28 ml OutputOutput Total 410 ml 400 ml BalanceBalance -258.92 ml -207.18 ml 27.28 ml Results/Medications Result Diagram: 11/05/1812 11/05/1812 Results 24 hrs Laboratory Tests Test 11/05/18 05:12 White Blood Count 17.6 H Red Blood Count 3.64 L Hemoglobin 11.3 L Hematocrit 35.4 L Mean Corpuscular Volume 97.3 Mean Corpuscular Hemoglobin 31.0 Mean Corpuscular Hemoglobin Concent 31.9 L Red Cell Distribution Width 12.4 Platelet Count 163 Mean Platelet Volume 10.3 Immature Granulocytes % 1.000 H Neutrophils % 75.7 Lymphocytes % 8.7 L Monocytes % 14.5 H Eosinophils % 0.0 Basophils % 0.1 Nucleated Red Blood Cells % 0.0 Immature Granulocytes # 0.170 H Neutrophils # 13.3 H Lymphocytes # 1.5 Monocytes # 2.6 H Eosinophils # 0.0 Basophils # 0.0 Nucleated Red Blood Cells # 0.0 Prothrombin Time 16.6 #H Prothrombin Time Ratio 1.3 INR International Normalized Ratio 1.33 Sodium Level 136 Potassium Level 4.2 Chloride Level 99 Carbon Dioxide Level 31 Anion Gap 6 Blood Urea Nitrogen 25 H Creatinine 1.46 H Est Glomerular Filtrat Rate mL/min 49 L Glucose Level 97 Calcium Level 8.8 Magnesium Level 2.1 Total Bilirubin 0.9 Direct Bilirubin 0.00 Indirect Bilirubin 0.9 Aspartate Amino Transf (AST/SGOT) 315 #H Alanine Aminotransferase (ALT/SGPT) 90 H Alkaline Phosphatase 52 Creatine Kinase 1414 #H Creatine Kinase Index 1.1 Creatinine Kinase MB (Mass) 16.20 H Troponin I 99.500 *H B-Type Natriuretic Peptide 4150 H Total Protein 5.6 #L Albumin 3.3 Globulin 2.30 Albumin/Globulin Ratio 1.43 Triglycerides Level 71 Cholesterol Level 134 # LDL Cholesterol, Calculated 79 HDL Cholesterol 41 Cholesterol/HDL Ratio 3.2 Home Meds Unable to Obtain Active Prescriptions or Reported Meds Medications Current Medications Aspirin (Halfprin) 81 mg DAILY PO Last administered on 11/05/18at 08:09; Admin Dose 81 MG; Start 11/04/18 at 09:00 Prasugrel (Effient) 10 mg DAILY PO Last administered on 11/05/18at 08:09; Admin Dose 10 MG; Start 11/03/18 at 13:30 Acetaminophen (Tylenol Tab) 650 mg Q4H PRN PO PAIN; Start 11/03/18 at 13:30 Oxycodone/ Acetaminophen (Percocet (5/ 325)) 1 tab Q4H PRN PO PAIN; Start 11/03/18 at 13:30 Oxycodone/ Acetaminophen (Percocet (5/ 325)) 2 tab Q4H PRN PO PAIN Last administered on 11/04/18 08:13; Admin Dose 2 TAB; Start 11/03/18 at 13:30 Carvedilol (Coreg) 3.125 mg BID PO Last administered on 11/05/18 08:08; Admin Dose 3.125 MG; Start 11/03/18 at 21:00 Zolpidem Tartrate (Ambien) 5 mg HS MAY REPEAT X 1 PRN PO INSOMNIA Last administered on 11/03/18 23:47; Admin Dose 5 MG; Start 11/03/18 at 17:00 Docusate Sodium (Colace) 100 mg BID PO Last administered on 11/05/18 08:09; Admin Dose 100 MG; Start 11/03/18 at 21:00 Ondansetron HCl (Zofran Inj) 4 mg Q4H PRN IV NAUSEA AND/OR VOMITING; Start 11/03/18 at 19:30 Simethicone (Mylicon) 80 mg Q6H PRN PO DISTENSION/GAS/BLOATING Last administ ered on 11/03/18 21:56; Admin Dose 80 MG; Start 11/03/18 at 20:00 Nitroglycerin (Nitroglycerin (Sl Tab) 0.4 Mg) 1 tab Q5M PRN SL ANGINA Last administered on 11/03/18 21:59; Admin Dose 1 TAB; Start 11/03/18 at 21:00 Nitroglycerin/ Dextrose 250 ml @ 0 mls/hr TITRATE IV Last administered on 11/03/18 21:03; Admin Dose 5 MLS/HR; Start 11/03/18 at 21:00 Phenol (Cepastat Lozenge) 1 lozenge Q1H PRN MT throat pain Last administered on 11/04/18 01:13; Admin Dose 1 LOZENGE; Start 11/04/18 at 01:00 Atorvastatin Calcium (Lipitor) 40 mg DAILY@21 PO ; Start 11/04/18 at 21:00 Magnesium Citrate (Citroma) 300 ml ONCE PRN PO IF ENEMA DOESN'T WORK; Start 11/04/18 at 09:00; Stop 11/06/18 at 08:59 Polyethylene Glycol (Miralax) 17 gm DAILY PO Last administered on 11/05/18 08:08; Admin Dose 17 GM; Start 11/04/18 at 09:00 Digoxin (Digoxin) 0.125 mg DAILY@13 PO Last administered on 11/04/18 13:43; Ad min Dose 0.125 MG; Start 11/04/18 at 13:00 Enoxaparin Sodium (Lovenox) 60 mg BID SC Last administered on 11/05/18 08:03; Admin Dose 60 MG; Start 11/04/18 at 09:30 Morphine Sulfate (morphine) 2 mg Q4 PRN IV PAIN Last administered on 11/04/18 13:47; Admin Dose 2 MG; Start 11/04/18 at 11:00 Haloperidol (Haldol) 3 mg Q8 PRN IM AGITATION Last administered on 11/05/18 08:01; Admin Dose 3 MG; Start 11/04/18 at 13:30 Chlordiazepoxide (Librium) 50 mg TID PO Last administered on 11/05/18 08:09; Admin Dose 50 MG; Start 11/04/18 at 15:30 Thiamine HCl (Vitamin B1) 100 mg DAILY PO Last administered on 11/05/18 08:09; Admin Dose 100 MG; Start 11/05/18 at 09:00 Folic Acid (Folic Acid) 1 mg DAILY PO Last administered on 11/05/18 08:09; Admin Dose 1 MG; Start 11/05/18 at 09:00 Multivitamins Therapeutic (Theragran) 1 tab DAILY PO Last administered on 11/05/18 08:09; Admin Dose 1 TAB; Start 11/05/18 at 09:00 Lorazepam (Ativan) 2 mg Q2H PRN IV agitation and confusion; Start 11/04/18 at 18:30 Dexmedetomidine HCl 200 mcg/ Sodium Chloride 50 ml @ 3.41 mls/hr TITRATE IV Last administered on 11/05/18 07:33; Admin Dose 3.41 MLS/HR; Start 11/05/18 at 06:30 Famotidine (Pepcid Iv) 20 mg BID IV ; Start 11/05/18 at 21:00 Assessment/Plan Hospital Course (Demo Recall) Acute inferior lateral/posterior ST elevation myocardial infarction Status post highly complex PCI of the right coronary artery Dyslipidemia Ex-smoker History of DVT Nausea vomiting diffuse abd pain Encephalopathy: Possibly withdrawal Elevated LFTs mostly with elevation of AST Cardiomyopathy Acute kidney injury Recommendations: Aspirin and Effient will be continued Beta-dennis as long as able to tolerated Continue dig We will very closely monitor intensive care unit NTG drip prn PPI Decrease Lovenox to prophylaxis dose only LE U/S did not show any acute DVT. Start the patient IV fluids he is not eating Echocardiogram has been ordered to be done number personally reviewed once is done More than 32 minutes of critical care time was for management treatment is critically ill patient excluding any procedures Thank you for his referral. We will continue to follow along with you KARY POPE MD [facility] KARY POPE MD Nov 05, 2018 08:32
[2018-11-05] MEDS: ENOXAPARIN 40 MG/0.4 ML SYG SC SCH ×2 (09:00→20:44)
[2018-11-05] MEDS: DEXTROSE 5%-0.9% NACL 1,000 ML IV SCH ×2 (09:04→20:46)
[2018-11-05] MEDS: DIGOXIN 0.125 MG TAB PO SCH (12:46)
[2018-11-05] MEDS: morphine 2 MG INJ IV PRN ×2 (12:57→22:04)
--- NOTE | 2018-11-05 19:57 | PN ---
Date/Time of Note Date/Time of Note DATE: 11/05/18 TIME oF EVALUATION: 08:29 Assessment/Plan VTE Prophylaxis Risk score (from Nsg)>0 risk: 10 SCD applied (from Nsg): Yes Pharmacological prophylaxis: LMWH Lines/Catheters IV Catheter Type (from Nrsg): Peripheral IV Assessment/Plan Hospital Course S: calmer now on precedex drip, still requiring restraints however to keep from pulling out lines , very sleepy, will open eyes to stimulation but go back to sleep O General: sleepy on precedex drip and librium taper HEENT: NC/ AT. PERRL. EOM intact Neck: supple CVS: S1, S2, RRR. no murmurs. no pain on chest wall palpation Lungs: CTA b/l. no wheezing or rhonchi Abd: soft, nontender, +BS Ext: moving all extremities skin: no rashes assessment and plan: A 62-year-old male who presented with intermittent chest pain in midsternal region currently admitted to the ICU and managed as follows: 1. Inferior wall ST elevation myocardial infarction, -status post emergent left heart catheterization that found culprit lesion of 100% occluded RCA with large amount of thrombus, status post successful PCI. -Cardiology final recommendations include aggressive medical therapy, indefinite use of aspirin, double antiplatelet therapy with aspirin and Effient and Angiomax -troponins much improved but still quite elevated -continue to follow cardio recs 2. Acute encephalopathy likely DTs -patient had denied heavy alcohol use but symptoms suggestive of DTs -finally calm on precedex drip, librium taper ongoing -not taking much orally however d/t sleepiness so will add banana bag daily -has been started on low dose IVF by cardio 3. ELAINA -likely ATN from hypoperfusion from NSTEMI, then underwent emergent cath and also with severe rhabdomyolysis -continue reveles, get renal USS -Hold ACEi, ARBs, and metformin if applicable. Renally dose all meds. Serial labs. Nephro consult 4. Chronic obstructive pulmonary disease/emphysema. -No gross evidence of exacerbation at this time. Bronchodilator therapy as needed. 5. Reactive leukocytosis, likely secondary to #1: -Monitor. 6. Rhabdomyolysis: -improved , continue to Trend levels, gentle hydration as tolerated. 7. Dyslipidemia with hypertriglyceridemia and elevated total cholesterol as well as a LDL not at goal: -The patient is on high dose statin therapy. 8. Transaminitis: -improving, continue to trend. It could be reactive. 9. hx of tobacco use 10. Possible heavy ETOH use -reassess when mentation improved . dispo: -remain in ICU for now, wean off precedex drip -continue supportive care, monitor closely prognosis: guarded Result Diagram: 11/05/18 0512 11/05/18 1724 Results 24hrs Laboratory Tests Test 11/05/18 05:12 11/05/18 17:24 White Blood Count 17.6 H Red Blood Count 3.64 L Hemoglobin 11.3 L Hematocrit 35.4 L Mean Corpuscular Volume 97.3 Mean Corpuscular Hemoglobin 31.0 Mean Corpuscular Hemoglobin Concent 31.9 L Red Cell Distribution Width 12.4 Platelet Count 163 Mean Platelet Volume 10.3 Immature Granulocytes % 1.000 H Neutrophils % 75.7 Lymphocytes % 8.7 L Monocytes % 14.5 H Eosinophils % 0.0 Basophils % 0.1 Nucleated Red Blood Cells % 0.0 Immature Granulocytes # 0.170 H Neutrophils # 13.3 H Lymphocytes # 1.5 Monocytes # 2.6 H Eosinophils # 0.0 Basophils # 0.0 Nucleated Red Blood Cells # 0.0 Prothrombin Time 16.6 #H Prothrombin Time Ratio 1.3 INR International Normalized Ratio 1.33 Sodium Level 136 138 Potassium Level 4.2 4.2 Chloride Level 99 103 Carbon Dioxide Level 31 27 Anion Gap 6 8 Blood Urea Nitrogen 25 H 33 H Creatinine 1.46 H 1.51 H Est Glomerular Filtrat Rate mL/min 49 L 47 L Glucose Level 97 115 Calcium Level 8.8 8.6 Magnesium Level 2.1 Total Bilirubin 0.9 Direct Bilirubin 0.00 Indirect Bilirubin 0.9 Aspartate Amino Transf (AST/SGOT) 315 #H Alanine Aminotransferase (ALT/SGPT) 90 H Alkaline Phosphatase 52 Creatine Kinase 1414 #H Creatine Kinase Index 1.1 Creatinine Kinase MB (Mass) 16.20 H Troponin I 99.500 *H B-Type Natriuretic Peptide 4150 H Total Protein 5.6 #L Albumin 3.3 Globulin 2.30 Albumin/Globulin Ratio 1.43 Triglycerides Level 71 Cholesterol Level 134 # LDL Cholesterol, Calculated 79 HDL Cholesterol 41 Cholesterol/HDL Ratio 3.2 Exam/Review of Systems Exam Vitals Vital Signs Date Temp Pulse Resp B/P (MAP) Pulse Ox O2 O2 Flow FiO2 Time Delivery Rate 11/05/18 96 26 91/60 (70) 94 Nasal 18:00 Cannula 11/05/18 99.8 16:00 11/05/18 3.0 15:57 Intake and Output 11/04/18 11/04/18 11/05/18 1515:00 23:00 07:00 IntakeIntake Total 146.99 ml 196.23 ml 23.87 ml OutputOutput Total 410 ml 400 ml BalanceBalance -263.01 ml -203.77 ml 23.87 ml Results Results 24hrs Laboratory Tests Test 11/05/18 05:12 11/05/18 17:24 White Blood Count 17.6 H Red Blood Count 3.64 L Hemoglobin 11.3 L Hematocrit 35.4 L Mean Corpuscular Volume 97.3 Mean Corpuscular Hemoglobin 31.0 Mean Corpuscular Hemoglobin Concent 31.9 L Red Cell Distribution Width 12.4 Platelet Count 163 Mean Platelet Volume 10.3 Immature Granulocytes % 1.000 H Neutrophils % 75.7 Lymphocytes % 8.7 L Monocytes % 14.5 H Eosinophils % 0.0 Basophils % 0.1 Nucleated Red Blood Cells % 0.0 Immature Granulocytes # 0.170 H Neutrophils # 13.3 H Lymphocytes # 1.5 Monocytes # 2.6 H Eosinophils # 0.0 Basophils # 0.0 Nucleated Red Blood Cells # 0.0 Prothrombin Time 16.6 #H Prothrombin Time Ratio 1.3 INR International Normalized Ratio 1.33 Sodium Level 136 138 Potassium Level 4.2 4.2 Chloride Level 99 103 Carbon Dioxide Level 31 27 Anion Gap 6 8 Blood Urea Nitrogen 25 H 33 H Creatinine 1.46 H 1.51 H Est Glomerular Filtrat Rate mL/min 49 L 47 L Glucose Level 97 115 Calcium Level 8.8 8.6 Magnesium Level 2.1 Total Bilirubin 0.9 Direct Bilirubin 0.00 Indirect Bilirubin 0.9 Aspartate Amino Transf (AST/SGOT) 315 #H Alanine Aminotransferase (ALT/SGPT) 90 H Alkaline Phosphatase 52 Creatine Kinase 1414 #H Creatine Kinase Index 1.1 Creatinine Kinase MB (Mass) 16.20 H Troponin I 99.500 *H B-Type Natriuretic Peptide 4150 H Total Protein 5.6 #L Albumin 3.3 Globulin 2.30 Albumin/Globulin Ratio 1.43 Triglycerides Level 71 Cholesterol Level 134 # LDL Cholesterol, Calculated 79 HDL Cholesterol 41 Cholesterol/HDL Ratio 3.2 Medications Medication Current Medications Aspirin (Halfprin) 81 mg DAILY PO Last administered on 11/05/18 08:09; Admin Dose 81 MG; Start 11/04/18 at 09:00 Prasugrel (Effient) 10 mg DAILY PO Last administered on 11/05/18 08:09; Admin Dose 10 MG; Start 11/03/18 at 13:30 Acetaminophen (Tylenol Tab) 650 mg Q4H PRN PO PAIN; Start 11/03/18 at 13:30 Oxycodone/ Acetaminophen (Percocet (5/ 325)) 1 tab Q4H PRN PO PAIN; Start 11/03/18 at 13:30 Oxycodone/ Acetaminophen (Percocet (5/ 325)) 2 tab Q4H PRN PO PAIN Last administered on 11/04/18 08:13; Admin Dose 2 TAB; Start 11/03/18 at 13:30 Carvedilol (Coreg) 3.125 mg BID PO Last administered on 11/05/18 08:08; Admin Dose 3.125 MG; Start 11/03/18 at 21:00 Zolpidem Tartrate (Ambien) 5 mg HS MAY REPEAT X 1 PRN PO INSOMNIA Last ad ministered on 11/03/18 23:47; Admin Dose 5 MG; Start 11/03/18 at 17:00 Docusate Sodium (Colace) 100 mg BID PO Last administered on 11/05/18 08:09; Admin Dose 100 MG; Start 11/03/18 at 21:00 Ondansetron HCl (Zofran Inj) 4 mg Q4H PRN IV NAUSEA AND/OR VOMITING; Start 11/03/18 at 19:30 Simethicone (Mylicon) 80 mg Q6H PRN PO DISTENSION/GAS/BLOATING Last administered on 11/03/18 21:56; Admin Dose 80 MG; Start 11/03/18 at 20:00 Nitroglycerin (Nitroglycerin (Sl Tab) 0.4 Mg) 1 tab Q5M PRN SL ANGINA Last administered on 11/03/18 21:59; Admin Dose 1 TAB; Start 11/03/18 at 21:00 Nitroglycerin/ Dextrose 250 ml @ 0 mls/hr TITRATE IV Last administered on 11/03/18 21:03; Admin Dose 5 MLS/HR; Start 11/03/18 at 21:00 Phenol (Cepastat Lozenge) 1 lozenge Q1H PRN MT throat pain Last administered on 11/04/18 01:13; Admin Dose 1 LOZENGE; Start 11/04/18 at 01:00 Atorvastatin Calcium (Lipitor) 40 mg DAILY@21 PO ; Start 11/04/18 at 21:00 Magnesium Citrate (Citroma) 300 ml ONCE PRN PO IF ENEMA DOESN'T WORK; Start 11/04/18 at 09:00; Stop 11/06/18 at 08:59 Polyethylene Glycol (Miralax) 17 gm DAILY PO Last administered on 11/05/18 08:08; Admin Dose 17 GM; Start 11/04/18 at 09:00 Digoxin (Digoxin) 0.125 mg DAILY@13 PO Last administered on 11/05/18 12:46; Admin Dose 0.125 MG; Start 11/04/18 at 13:00 Morphine Sulfate (morphine) 2 mg Q4 PRN IV PAIN Last administered on 11/05/18 12:57; Admin Dose 2 MG; Start 11/04/18 at 11:00 Haloperidol (Haldol) 3 mg Q8 PRN IM AGITATION Last administered on 11/05/18 08:01; Admin Dose 3 MG; Start 11/04/18 at 13:30 Chlordiazepoxide (Librium) 50 mg TID PO Last administered on 11/05/18 08:09; Admin Dose 50 MG; Start 11/04/18 at 15:30 Thiamine HCl (Vitamin B1) 100 mg DAILY PO Last administered on 11/05/18 08:09; Admin Dose 100 MG; Start 11/05/18 at 09:00 Folic Acid (Folic Acid) 1 mg DAILY PO Last administered on 11/05/18 08:09; Admin Dose 1 MG; Start 11/05/18 at 09:00 Multivitamins Therapeutic (Theragran) 1 tab DAILY PO Last administered on 08:09; Admin Dose 1 TAB; Start 11/05/18 at 09:00 Lorazepam (Ativan) 2 mg Q2H PRN IV agitation and confusion Last administered on 11/05/18 18:24; Admin Dose 2 MG; Start 11/04/18 at 18:30 Dexmedetomidine HCl 200 mcg/ Sodium Chloride 50 ml @ 3.41 mls/hr TITRATE IV Last administered on 11/05/18at 12:31; Admin Dose 6.82 MLS/HR; Start 11/05/18 at 06:30 Famotidine (Pepcid Iv) 20 mg BID IV ; Start 11/05/18 at 21:00 Enoxaparin Sodium (Lovenox) 40 mg BID SC ; Start 11/05/18 at 09:00 Dextrose/Sodium Chloride 1,000 ml @ 70 mls/hr [id number] IV Last administered on 11/05/18at 09:04; Admin Dose 70 MLS/HR; Start 11/05/18 at 08:30; Stop 11/06/18 at 07:29 BECKI CANTU 14, 2019 19:56
[2018-11-05] MEDS: FAMOTIDINE 20 MG INJ IV SCH (20:44)
[2018-11-05] MEDS: ATORVASTATIN 40 MG TAB PO SCH (20:45)
[2018-11-06] VITALS (54 sets, daily range): BP systolic 47–208; BP diastolic 11–165; PULSE 87–147; RESP 17–37
--- NOTE | 2018-11-06 06:37 | PN ---
Date/Time of Note Date/Time of Note DATE: 11/06/18 TIME: 06:35 Assessment/Plan VTE Prophylaxis Risk score (from Nsg)>0 risk: 10 SCD applied (from Nsg): Yes Lines/Catheters IV Catheter Type (from Nrsg): Peripheral IV Urinary Cath still in place: No (CONDOM CATH) Assessment/Plan Hospital Course S: O General: HEENT: NC/ AT. PERRL. EOM intact Neck: supple CVS: S1, S2, RRR. no murmurs. no pain on chest wall palpation Lungs: CTA b/l. no wheezing or rhonchi Abd: soft, nontender, +BS Ext: moving all extremities skin: no rashes assessment and plan: A 62-year-old male who presented with intermittent chest pain in midsternal region currently admitted to the ICU and managed as follows: 1. Inferior wall ST elevation myocardial infarction, -status post emergent left heart catheterization that found culprit lesion of 100% occluded RCA with large amount of thrombus, status post difficult but successful PCI. -Cardiology final recommendations include aggressive medical therapy, indefinite use of aspirin, double antiplatelet therapy with aspirin and Effient and Angiomax -troponins much improved but still quite elevated -continue to follow cardio recs 2. Hypotension -likely 2/2 sedating meds re #3, versus impending cardiogenic shock? -f/u am cardiac enzymes -will give albumin to increase intravascular volume 3. Acute encephalopathy likely DTs -patient had denied heavy alcohol use but symptoms suggestive of DTs -finally calm on precedex drip, librium taper ongoing -not taking much orally however d/t sleepiness so will add banana bag daily -has been started on low dose IVF by cardio 3. ELAINA -likely ATN from hypoperfusion from NSTEMI, then underwent emergent cath and also with severe rhabdomyolysis -continue reveles, get renal USS -Hold ACEi, ARBs, and metformin if applicable. Renally dose all meds. Serial labs. Nephro consult 4. Chronic obstructive pulmonary disease/emphysema. -No gross evidence of exacerbation at this time. Bronchodilator therapy as needed. 5. Reactive leukocytosis, likely secondary to #1: -Monitor. 6. Rhabdomyolysis: -improved , continue to Trend levels, gentle hydration as tolerated. 7. Dyslipidemia with hypertriglyceridemia and elevated total cholesterol as well as a LDL not at goal: -The patient is on high dose statin therapy. 8. Transaminitis: -improving, continue to trend. It could be reactive. 9. hx of tobacco use 10. Possible heavy ETOH use -reassess when mentation improved . dispo: -remain in ICU for now, wean off precedex drip -continue supportive care, monitor closely prognosis: guarded Result Diagram: 11/06/18 0525 11/06/18 0525 Results 24hrs Laboratory Tests Test 11/05/18 17:24 11/06/18 05:25 Sodium Level 138 139 Potassium Level 4.2 4.0 Chloride Level 103 106 Carbon Dioxide Level 27 28 Anion Gap 8 5 Blood Urea Nitrogen 33 H 33 H Creatinine 1.51 H 1.35 H Est Glomerular Filtrat Rate mL/min 47 L 54 L Glucose Level 115 116 Calcium Level 8.6 8.2 L White Blood Count 13.1 #H Red Blood Count 3.25 L Hemoglobin 10.2 L Hematocrit 31.6 L Mean Corpuscular Volume 97.2 Mean Corpuscular Hemoglobin 31.4 Mean Corpuscular Hemoglobin Concent 32.3 Red Cell Distribution Width 12.5 Platelet Count 171 Mean Platelet Volume 10.5 H Immature Granulocytes % 0.600 H Neutrophils % 77.2 H Lymphocytes % 10.2 L Monocytes % 11.4 H Eosinophils % 0.2 Basophils % 0.4 Nucleated Red Blood Cells % 0.0 Immature Granulocytes # 0.080 H Neutrophils # 10.1 H Lymphocytes # 1.3 Monocytes # 1.5 H Eosinophils # 0.0 Basophils # 0.1 Nucleated Red Blood Cells # 0.0 Magnesium Level 2.4 Total Bilirubin 0.6 Direct Bilirubin 0.00 Indirect Bilirubin 0.6 Aspartate Amino Transf (AST/SGOT) 165 H Alanine Aminotransferase (ALT/SGPT) 73 H Alkaline Phosphatase 53 Creatine Kinase 1174 H Creatine Kinase Index Pending Creatinine Kinase MB (Mass) Pending Troponin I Pending Total Protein 5.4 L Albumin 3.0 L Globulin 2.40 Albumin/Globulin Ratio 1.25 Digoxin Level 0.4 L Exam/Review of Systems Exam Vitals Vital Signs Date Temp Pulse Resp B/P (MAP) Pulse Ox O2 O2 Flow FiO2 Time Delivery Rate 11/06/18 109 04:00 11/06/18 99.6 30 95/62 (73) 94 Nasal 2.0 04:00 Cannula Intake and Output 11/05/18 11/05/18 11/06/18 1515:00 23:00 07:00 IntakeIntake Total 516.03 ml 529.18 ml 367.05 ml OutputOutput Total 455 ml 170 ml BalanceBalance 516.03 ml 74.18 ml 197.05 ml Results Results 24hrs Laboratory Tests Test 11/05/18 17:24 11/06/18 05:25 Sodium Level 138 139 Potassium Level 4.2 4.0 Chloride Level 103 106 Carbon Dioxide Level 27 28 Anion Gap 8 5 Blood Urea Nitrogen 33 H 33 H Creatinine 1.51 H 1.35 H Est Glomerular Filtrat Rate mL/min 47 L 54 L Glucose Level 115 116 Calcium Level 8.6 8.2 L White Blood Count 13.1 #H Red Blood Count 3.25 L Hemoglobin 10.2 L Hematocrit 31.6 L Mean Corpuscular Volume 97.2 Mean Corpuscular Hemoglobin 31.4 Mean Corpuscular Hemoglobin Concent 32.3 Red Cell Distribution Width 12.5 Platelet Count 171 Mean Platelet Volume 10.5 H Immature Granulocytes % 0.600 H Neutrophils % 77.2 H Lymphocytes % 10.2 L Monocytes % 11.4 H Eosinophils % 0.2 Basophils % 0.4 Nucleated Red Blood Cells % 0.0 Immature Granulocytes # 0.080 H Neutrophils # 10.1 H Lymphocytes # 1.3 Monocytes # 1.5 H Eosinophils # 0.0 Basophils # 0.1 Nucleated Red Blood Cells # 0.0 Magnesium Level 2.4 Total Bilirubin 0.6 Direct Bilirubin 0.00 Indirect Bilirubin 0.6 Aspartate Amino Transf (AST/SGOT) 165 H Alanine Aminotransferase (ALT/SGPT) 73 H Alkaline Phosphatase 53 Creatine Kinase 1174 H Creatine Kinase Index Pending Creatinine Kinase MB (Mass) Pending Troponin I Pending Total Protein 5.4 L Albumin 3.0 L Globulin 2.40 Albumin/Globulin Ratio 1.25 Digoxin Level 0.4 L Medications Medication Current Medications Aspirin (Halfprin) 81 mg DAILY PO Last administered on 11/05/18at 08:09; Admin Dose 81 MG; Start 11/04/18 at 09:00 Prasugrel (Effient) 10 mg DAILY PO Last administered on 11/05/18at 08:09; Admin Dose 10 MG; Start 11/03/18 at 13:30 Acetaminophen (Tylenol Tab) 650 mg Q4H PRN PO PAIN; Start 11/03/18 at 13:30 Oxycodone/ Acetaminophen (Percocet (5/ 325)) 1 tab Q4H PRN PO PAIN; Start 11/03/18 at 13:30 Oxycodone/ Acetaminophen (Percocet (5/ 325)) 2 tab Q4H PRN PO PAIN Last administered on 11/04/18 08:13; Admin Dose 2 TAB; Start 11/03/18 at 13:30 Carvedilol (Coreg) 3.125 mg BID PO Last administered on 11/05/18 08:08; Admin Dose 3.125 MG; Start 11/03/18 at 21:00 Zolpidem Tartrate (Ambien) 5 mg HS MAY REPEAT X 1 PRN PO INSOMNIA Last administered on 11/03/18 23:47; Admin Dose 5 MG; Start 11/03/18 at 17:00 Docusate Sodium (Colace) 100 mg BID PO Last administered on 11/05/18 08:09; Admin Dose 100 MG; Start 11/03/18 at 21:00 Ondansetron HCl (Zofran Inj) 4 mg Q4H PRN IV NAUSEA AND/OR VOMITING; Start 11/03/18 at 19:30 Simethicone (Mylicon) 80 mg Q6H PRN PO DISTENSION/GAS/BLOATING Last administered on 11/03/18 21:56; Admin Dose 80 MG; Start 11/03/18 at 20:00 Nitroglycerin (Nitroglycerin (Sl Tab) 0.4 Mg) 1 tab Q5M PRN SL ANGINA Last administered on 11/03/18 21:59; Admin Dose 1 TAB; Start 11/03/18 at 21:00 Nitroglycerin/ Dextrose 250 ml @ 0 mls/hr TITRATE IV Last administered on 11/03/18 21:03; Admin Dose 5 MLS/HR; Start 11/03/18 at 21:00 Phenol (Cepastat Lozenge) 1 lozenge Q1H PRN MT throat pain Last administered on 11/04/18 01:13; Admin Dose 1 LOZENGE; Start 11/04/18 at 01:00 Atorvastatin Calcium (Lipitor) 40 mg DAILY@21 PO ; Start 11/04/18 at 21:00 Magnesium Citrate (Citroma) 300 ml ONCE PRN PO IF ENEMA DOESN'T WORK; Start 11/04/18 at 09:00; Stop 11/06/18 at 08:59 Polyethylene Glycol (Miralax) 17 gm DAILY PO Last administered on 11/05/18 08:08; Admin Dose 17 GM; Start 11/04/18 at 09:00 Digoxin (Digoxin) 0.125 mg DAILY@13 PO Last administered on 11/05/18 12:46; Admin Dose 0.125 MG; Start 11/04/18 at 13:00 Morphine Sulfate (morphine) 2 mg Q4 PRN IV PAIN Last administered on 11/05/18 22:04; Admin Dose 2 MG; Start 11/04/18 at 11:00 Haloperidol (Haldol) 3 mg Q8 PRN IM AGITATION Last administered on 11/05/18 08:01; Admin Dose 3 MG; Start 11/04/18 at 13:30 Thiamine HCl (Vitamin B1) 100 mg DAILY PO Last administered on 11/05/18 08:09; Admin Dose 100 MG; Start 11/05/18 at 09:00 Folic Acid (Folic Acid) 1 mg DAILY PO Last administered on 11/05/18 08:09; Admin Dose 1 MG; Start 11/05/18 at 09:00 Multivitamins Therapeutic (Theragran) 1 tab DAILY PO Last administered on 11/05/18 08:09; Admin Dose 1 TAB; Start 11/05/18 at 09:00 Lorazepam (Ativan) 2 mg Q2H PRN IV agitation and confusion Last administered on 11/05/18 18:24; Admin Dose 2 MG; Start 11/04/18 at 18:30 Dexmedetomidine HCl 200 mcg/ Sodium Chloride 50 ml @ 3.41 mls/hr TITRATE IV Last administered on 11/05/18 21:55; Admin Dose 5.11 MLS/HR; Start 11/05/18 at 06:30 Famotidine (Pepcid Iv) 20 mg BID IV Last administered on 11/05/18 20:44; Admin Dose 20 MG; Start 11/05/18 at 21:00 Enoxaparin Sodium (Lovenox) 40 mg BID SC Last administered on 11/05/18 20:44; Admin Dose 40 MG; Start 11/05/18 at 09:00 Dextrose/Sodium Chloride 1,000 ml @ 70 mls/hr [id number] IV Last administered on 11/05/18at 20:46; Admin Dose 70 MLS/HR; Start 11/05/18 at 08:30; Stop 11/06/18 at 07:29 Chlordiazepoxide (Librium) 25 mg QID PO ; Start 11/05/18 at 21:00; Stop 11/06/18 at 20:59 Chlordiazepoxide (Librium) 25 mg TID PO ; Start 11/06/18 at 21:00; Stop 11/07/18 at 20:59 Multivitamins 10 ml/Thiamine HCl 100 mg/Folic Acid 1 mg/Dextrose/ Sodium Chloride 1,011.2 ml @ 125 mls/ hr DAILY@09 IVPB ; Start 11/06/18 at 09:00 BECKI CANTU Nov 06, 2018 06:37
[2018-11-06] MEDS ORDERED: DEXTROSE 50% 50 ML SYRINGE ONE (07:00)
[2018-11-06] MEDS ORDERED: EPINEPHrine 0.1 MG/ML SYG ONE ×2 (07:00→21:39)
[2018-11-06] MEDS ORDERED: ALBUMIN HUMAN 25% 100 ML IV ONE (07:00)
[2018-11-06] MEDS ORDERED: NA BICARBONATE 8.4% 50 ML SYG ONE (07:00)
--- NOTE | 2018-11-06 08:32 | CONS ---
DATE OF ADMISSION: 11/03/2018 DATE OF CONSULTATION: 11/06/2018 TYPE OF CONSULTATION: Nephrology. REASON FOR CONSULTATION: Acute kidney injury. PHYSICIAN REQUESTING CONSULT: Dr. Cantu HISTORY OF PRESENT ILLNESS: This is a 62-year-old male with a past medical history of chronic obstru ctive pulmonary disease, who presented to the [facility] Emergency Room on 11/04/19 19 with intermittent chest pain. The patient had an EKG, which found to be abnormal, [facility] the patient was found to have a STEMI with possible inferior wall. He underwent urgent cardiac catheterization and found to have 100% occlusion of RCA with large amount of thrombus. The p atient had successful PCI and was placed on a double platelet therapy. During hospital course, the p atient was noted to be hypotensive as well as having episode of rhabdomyolysis. The patient did rece yg IV fluids. There were no reports of any hemoptysis, hematemesis or hematochezia. In terms of patient's renal history, on admission, the patient has creatinine of 0.8 mg/dL, which inc reased to 1.5 mg/dL. The patient has had adequate urinary output. There has been no reports hemopty sis or hematemesis. PAST MEDICAL HISTORY: History of chronic obstructive pulmonary disease. ALLERGIES: NO KNOWN DRUG ALLERGIES. FAMILY HISTORY: No family history of kidney disease. SOCIAL HISTORY: Positive tobacco use. MEDICATIONS: The patient's medications have been reviewed. REVIEW OF SYSTEMS: A 14-point review of systems was conducted. Pertinent positives stated in HPI, o therwise negative. PHYSICAL EXAMINATION: VITAL SIGNS: Blood pressure is 98/63, respirations 12, pulse 72, temperature 98.6. HEENT: Head is normocephalic. NECK: Supple. HEART: Regular rate. LUNGS: Show diminished breath sounds at the base. ABDOMEN: Soft, nontender to palpation without rebound or guarding. EXTREMITIES: Negative for clubbing, cyanosis, no edema. DERMATOLOGIC: No rashes. MUSCULOSKELETAL: No joint effusion. NEUROLOGIC: No change in exam. LABORATORY DATA: Shows sodium 139, potassium 4.0, BUN 33, creatinine 1.35, white count 13.1, hemoglo bin 10.2, platelet count is 171. The patient's urinalysis from 11/04/2018 was reviewed. IMAGING STUDIES: including renal ultrasound was reviewed and renal ultrasound shows no obstruction, normal echogenicity. ASSESSMENT AND PLAN: This is a 62-year-old male who presents with: 1. Nonoliguric acute kidney injury with previous baseline creatinine of around 1.0 mg/dL. Etiology of acute kidney injury is likely multifactorial secondary to contrast-associated nephropathy, hemodyn amics. The patient's renal function declined in temporal conjunction with cardiac catheterization. Creatinine, however, has improved in last 24 hours. At this point, we will recheck UA with microanal ysis. We will check urine electrolytes. We would otherwise continue current treatment plan, support yg care, renally dose all medicines. 2. Anemia. Monitor hemoglobin and hematocrit levels. 3. Mineral bone disorder, monitor calcium and phosphorus levels. 4. Hypotension. Etiology may be secondary to cardiac, questionable volume depletion. The patient's blood pressures have been stable. Patient is off pressor support. We will continue to monitor. 5. Acute ST elevated myocardial infarction. The patient is status post cardiac catheterization with PCI to the right coronary artery. Continue medical management. Follow up with cardiology. 6. Acute encephalopathy, etiology is toxic metabolic, possible delirium tremens. Continue medical m anagement. Continue Librium. 7. Chronic obstructive pulmonary disease. Continue medical management. 8. Leukocytosis, likely reactive. 9. Rhabdomyolysis, improved. 10. ETOH use with possible withdrawal. Continue current medical management. Thank you, Dr. Cantu, for this interesting consult. It will be a pleasure to follow patient with you t hroughout the hospital course. Dictated By: RIAN ODONNELL DO NR/NTS Conf#: [id number] DID#: [id number] CC: BECKI CANTU MD; KARY POPE MD;*EndCC*
[2018-11-06] MEDS: PRASUGREL HYDROCHLORIDE 10 MG TABLET PO SCH (08:43)
[2018-11-06] MEDS: THIAMINE 100 MG TAB PO SCH (08:43)
[2018-11-06] MEDS: POLYETHYLENE GLYCOL 17 GM PACKET PO SCH (08:43)
[2018-11-06] MEDS: MULTIVITAMINS THERAPEUTIC TAB PO SCH (08:43)
[2018-11-06] MEDS: FOLIC ACID 1 MG TAB PO SCH (08:43)
[2018-11-06] MEDS: ASPIRIN (EC) 81 MG TAB PO SCH (08:43)
[2018-11-06] MEDS: DOCUSATE SODIUM 100 MG CAP PO SCH ×2 (08:43→21:00)
[2018-11-06] MEDS: ENOXAPARIN 40 MG/0.4 ML SYG SC SCH ×2 (08:46→21:00)
[2018-11-06] MEDS ORDERED: THIAMINE IVPB SCH (09:00)
[2018-11-06] MEDS ORDERED: [UNRECOGNIZED DRUG - OTHER] IVPB SCH (09:00)
[2018-11-06] MEDS: CHLORDIAZEPOXIDE 25 MG CAP PO SCH ×3 (09:00→17:00)
[2018-11-06] MEDS ORDERED: MULTIVITAMINS IVPB SCH (09:00)
[2018-11-06] MEDS ORDERED: FOLIC ACID IVPB SCH (09:00)
[2018-11-06] MEDS: FAMOTIDINE 20 MG INJ IV SCH ×2 (09:17→21:00)
[2018-11-06] MEDS: DIGOXIN 0.125 MG TAB PO SCH (13:00)
[2018-11-06] MEDS ORDERED: FUROSEMIDE 20 MG INJ IV ONE (17:00)
[2018-11-06] MEDS ORDERED: PHENYLephrine 10 MG INJ ONE (17:05)
[2018-11-06] MEDS ORDERED: PHENYLephrine 80 MG in DEXTROSE 5% 242 ML IV SCH (17:30)
[2018-11-06] MEDS ORDERED: LEVALBUTEROL (NEB) 0.63 MG/3 ML AMP HHN PRN (17:30)
--- NOTE | 2018-11-06 18:16 | QN ---
Documentation Comment I was called out of the ICU to room 102 for an intubation. Endotracheal Intubation by me: Pre assessment performed. Pre-oxygenation performed with 100% oxygen RSI: Performed w/o complication or hypoxic events. Medications as ordered. Blade: MAC 4 video laryngoscope ET Tube: 7.5 cm Depth: 23 cm at the lip Intubation confirmed by colorimetric CO2, equal breath sounds, quiet over the stomach. Chest x-ray pending. JON ISRAEL MD Nov 06, 2018 18:16
--- NOTE | 2018-11-06 18:38 | CONS ---
Consult Date/Type/Reason Admit Date/Time Nov 03, 2018 at 10:06 Initial Consult Date 11/03/18 Type of Consultation: cv Requesting Provider: DAWOOD PRUITT DO Date/Time of Note DATE: 11/06/18 TIME: 18:33 Subjective Interventional cardiology follow-up progress note/ criticalcare note Subjective: Discussed with multiple staff and physicians. Telemetry was reviewed. Patient remains in normal sinus rhythm/sinus tachycardia She has been confused and agitated intermtently pt with increasing resp distress/ failure andhypexemia this afternoon and had to be intubated hypotensive now on pressors Objective: General: sedated HEENT: NC/AT. pupils are equal. round. NECK: NO JVD. no stridor. CV: tachycardic . systolic murmur; no gallop or rubs. PULM: + Rhonchi GI: SOFT, no tender to palpation, ND, no rebound or guarding Extremity: trace B/L LE edema. no clubbing. neuro: sedated Psych:calm rectal: deferred : normal EKG from November 21, 2018 was reviewed which shows sinus tachycardia. Inferior infarct age undetermined. ST elevation has significantly decreased compared to the prior to the PCI Chest x-ray done November 04, 2018 shows:1. Cardiomegaly.2. Mild patchy bibasilar atelectasis. CXR 11/06: CHF Lower extremity ultrasound: No DVT Echocardiogram was personally reviewed which shows: Normal left ventricular cavity size. Mild concentric left ventricular hypertrophy. Severe global left ventricular systolic dysfunction. Ejection fraction is visually estimated at 40 %. Abnormal Diastolic Function. These segments of the LV are hypokinetic inferior base segment, inferior mid segment and inferior apex segment. Normal appearance of the mitral valve. Mild mitral annular calcification. Trace mitral regurgitation. No significant aortic stenosis or insufficiency. Aortic cusps appear mildly calcified. Normal appearance of the tricuspid valve. Unable to obtain RVSP due to minimal presence of tricuspid regurgitation. Normal pericardium with no significant pericardial effusion. Objective Vitals Vital Signs Date Temp Pulse Resp B/P (MAP) Pulse Ox O2 O2 Flow FiO2 Time Delivery Rate 11/06/18 106 20 100 18:20 11/06/18 106/76 95 Nasal 2.0 16:30 (86) Cannula 11/06/18 99.1 16:00 Intake and Output 11/05/18 11/05/18 11/06/18 1515:00 23:00 07:00 IntakeIntake Total 516.03 ml 529.18 ml 370.46 ml OutputOutput Total 455 ml 210 ml BalanceBalance 516.03 ml 74.18 ml 160.46 ml Results/Medications Result Diagram: 11/06/18 0525 11/06/18 0525 Results 24 hrs Laboratory Tests Test 11/06/18 05:25 11/06/18 16:21 White Blood Count 13.1 #H Red Blood Count 3.25 L Hemoglobin 10.2 L Hematocrit 31.6 L Mean Corpuscular Volume 97.2 Mean Corpuscular Hemoglobin 31.4 Mean Corpuscular Hemoglobin Concent 32.3 Red Cell Distribution Width 12.5 Platelet Count 171 Mean Platelet Volume 10.5 H Immature Granulocytes % 0.600 H Neutrophils % 77.2 H Lymphocytes % 10.2 L Monocytes % 11.4 H Eosinophils % 0.2 Basophils % 0.4 Nucleated Red Blood Cells % 0.0 Immature Granulocytes # 0.080 H Neutrophils # 10.1 H Lymphocytes # 1.3 Monocytes # 1.5 H Eosinophils # 0.0 Basophils # 0.1 Nucleated Red Blood Cells # 0.0 Sodium Level 139 Potassium Level 4.0 Chloride Level 106 Carbon Dioxide Level 28 Anion Gap 5 Blood Urea Nitrogen 33 H Creatinine 1.35 H Est Glomerular Filtrat Rate mL/min 54 L Glucose Level 116 Calcium Level 8.2 L Magnesium Level 2.4 Total Bilirubin 0.6 Direct Bilirubin 0.00 Indirect Bilirubin 0.6 Aspartate Amino Transf (AST/SGOT) 165 H Alanine Aminotransferase (ALT/SGPT) 73 H Alkaline Phosphatase 53 Creatine Kinase 1174 H Creatine Kinase Index 0.5 Creatinine Kinase MB (Mass) 5.57 H Troponin I 59.300 *H Total Protein 5.4 L Albumin 3.0 L Globulin 2.40 Albumin/Globulin Ratio 1.25 Digoxin Level 0.4 L Blood Gas Specimen Source Blood arterial Arterial Blood Date Drawn 11/06/2018 4:28:43 PM Arterial Blood pH (Temp corrected) 7.393 Arterial Blood pCO2 (Temp correct) 38.8 Arterial Blood pO2 (Temp corrected) 58.1 L Arterial Blood HCO3 23.1 Arterial Blood Base Excess -1.6 Arterial Blood Oxygen Saturation 89.2 L Ethan Test ACCEPTAB Arterial Blood Gas Puncture Site Right Radial Arterial Blood Carboxyhemoglobin 0.4 Arterial Blood Methemoglobin 0.3 Blood Gas A-a O2 Differential 254.8 H Oxyhemoglobin Percent 88.6 L Blood Gas Temperature 37.0 Blood Gas Modality MASK - VENTI FiO2 50.0 Blood Gas Notified Whom M.D. Blood Gas Notified Time 11/06/2018 4:39:11 PM Home Meds Unable to Obtain Active Prescriptions or Reported Meds Medications Current Medications Aspirin (Halfprin) 81 mg DAILY PO Last administered on 11/06/18 08:43; Admin Dose 81 MG; Start 11/04/18 at 09:00 Prasugrel (Effient) 10 mg DAILY PO Last administered on 11/06/18 08:43; Admin Dose 10 MG; Start 11/03/18 at 13:30 Acetaminophen (Tylenol Tab) 650 mg Q4H PRN PO PAIN; Start 11/03/18 at 13:30 Oxycodone/ Acetaminophen (Percocet (5/ 325)) 1 tab Q4H PRN PO PAIN; Start 11/03/18 at 13:30 Oxycodone/ Acetaminophen (Percocet (5/ 325)) 2 tab Q4H PRN PO PAIN Last administered on 11/04/18 08:13; Admin Dose 2 TAB; Start 11/03/18 at 13:30 Carvedilol (Coreg) 3.125 mg BID PO Last administered on 11/05/18 08:08; Admin Dose 3.125 MG; Start 11/03/18 at 21:00 Zolpidem Tartrate (Ambien) 5 mg HS MAY REPEAT X 1 PRN PO INSOMNIA Last administered on 11/03/18 23:47; Admin Dose 5 MG; Start 11/03/18 at 17:00 Docusate Sodium (Colace) 100 mg BID PO Last administered on 11/06/18 08:43; Admin Dose 100 MG; Start 11/03/18 at 21:00 Ondansetron HCl (Zofran Inj) 4 mg Q4H PRN IV NAUSEA AND/OR VOMITING; Start 11/03/18 at 19:30 Simethicone (Mylicon) 80 mg Q6H PRN PO DISTENSION/GAS/BLOATING Last a dministered on 11/03/18 21:56; Admin Dose 80 MG; Start 11/03/18 at 20:00 Nitroglycerin (Nitroglycerin (Sl Tab) 0.4 Mg) 1 tab Q5M PRN SL ANGINA Last administered on 11/03/18 21:59; Admin Dose 1 TAB; Start 11/03/18 at 21:00 Nitroglycerin/ Dextrose 250 ml @ 0 mls/hr TITRATE IV Last administered on 11/03/18 21:03; Admin Dose 5 MLS/HR; Start 11/03/18 at 21:00 Phenol (Cepastat Lozenge) 1 lozenge Q1H PRN MT throat pain Last administered on 11/04/18 01:13; Admin Dose 1 LOZENGE; Start 11/04/18 at 01:00 Atorvastatin Calcium (Lipitor) 40 mg DAILY@21 PO ; Start 11/04/18 at 21:00 Polyethylene Glycol (Miralax) 17 gm DAILY PO Last administered on 11/06/18 08:43; Admin Dose 17 GM; Start 11/04/18 at 09:00 Digoxin (Digoxin) 0.125 mg DAILY@13 PO Last administered on 11/05/18 12:46; Admin Dose 0.125 MG; Start 11/04/18 at 13:00 Morphine Sulfate (morphine) 2 mg Q4 PRN IV PAIN Last administered on 11/05/18 22:04; Admin Dose 2 MG; Start 11/04/18 at 11:00 Haloperidol (Haldol) 3 mg Q8 PRN IM AGITATION Last administered on 11/05/18 08:01; Admin Dose 3 MG; Start 11/04/18 at 13:30 Thiamine HCl (Vitamin B1) 100 mg DAILY PO Last administered on 11/06/18 08:43; Admin Dose 100 MG; Start 11/05/18 at 09:00 Folic Acid (Folic Acid) 1 mg DAILY PO Last administered on 11/06/18 08:43; Admin Dose 1 MG; Start 11/05/18 at 09:00 Multivitamins Therapeutic (Theragran) 1 tab DAILY PO Last administered on 11/06/18 08:43; Admin Dose 1 TAB; Start 11/05/18 at 09:00 Lorazepam (Ativan) 2 mg Q2H PRN IV agitation and confusion Last administered on 11/05/18 18:24; Admin Dose 2 MG; Start 11/04/18 at 18:30 Dexmedetomidine HCl 200 mcg/ Sodium Chloride 50 ml @ 3.41 mls/hr TITRATE IV Last administered on 11/05/18at 21:55; Admin Dose 5.11 MLS/HR; Start 11/05/18 at 06:30 Famotidine (Pepcid Iv) 20 mg BID IV Last administered on 11/06/18at 09:17; Admin Dose 20 MG; Start 11/05/18 at 21:00 Enoxaparin Sodium (Lovenox) 40 mg BID SC Last administered on 11/06/18at 08:46; Admin Dose 40 MG; Start 11/05/18 at 09:00 Chlordiazepoxide (Librium) 25 mg QID PO ; Start 11/05/18 at 21:00; Stop 11/06/18 at 20:59 Chlordiazepoxide (Librium) 25 mg TID PO ; Start 11/06/18 at 21:00; Stop 11/07/18 at 20:59 Multivitamins 10 ml/Thiamine HCl 100 mg/Folic Acid 1 mg/Dextrose/ Sodium Chloride 1,011.2 ml @ 70 mls/hr DAILY@09 IVPB Last administered on 11/06/18at 08:49; Admin Dose 125 MLS/HR; Start 11/06/18 at 09:00 Phenylephrine HCl 80 mg/Dextrose 250 ml @ 18.75 mls/ hr TITRATE IV ; Start 11/06/18 at 17:30 Levalbuterol (Xopenex Neb) 0.63 mg Q4H RESP THERAPY PRN HHN WHEEZING; Start 11/06/18 at 17:30 Norepinephrine 32 mg/Dextrose 250 ml @ 0.47 mls/hr TITRATE IV ; Start 11/06/18 at 19:30 Assessment/Plan Hospital Course (Demo Recall) Acute inferior lateral/posterior ST elevation myocardial infarction Status post highly complex PCI of the right coronary artery Acute hypoxemic respiratory failure currently intubated Shock: Possibly cardiogenic versus septic Ex-smoker History of DVT Dyslipidemia Encephalopathy: Possibly withdrawal Elevated LFTs mostly with elevation of AST Cardiomyopathy Acute kidney injury Recommendations: Aspirin and Effient will need to be continued ECG from 11/06/18 reviewed personally and compared with the previous EKGs. ST elevation appears to be stabilized. We will continue medical therapy for now Continue dig We will very closely monitor intensive care unit PPI LE U/S did not show any acute DVT. More than 35 minutes of critical care time was for management treatment is critically ill patient excluding any procedures Thank you for his referral. We will continue to follow along with you KARY POPE MD [facility] KARY POPE MD Nov 06, 2018 18:38
--- NOTE | 2018-11-06 18:49 | QN ---
Documentation Comment I was called out of the ER to room 102 in the ICU for a central line placement Central Line Placement by me: Patient consented, sterilely draped, full prep, gown, glove, mask, time out performed. Anesthesia: 1% lidocaine locally Location: Right femoral Device: Multiple lumen Technique: Seldinger technique. Secured with suture. Results: Venous return from all ports with easy saline flush. No complications. Guide wire retrieved and disposed of. ED Ultrasound: Central line placed by me using concurrent ultrasound guidance. Real time image archived in the medical record confirms vascular anatomy. JON ISRAEL MD Nov 06, 2018 18:49
[2018-11-06] MEDS ORDERED: SOD CHLORIDE 0.9% 500 ML IV ONE (19:00)
[2018-11-06] MEDS ORDERED: NORepinephrine 32 MG in DEXTROSE 5% 218 ML IV SCH (19:30)
[2018-11-06] MEDS ORDERED: PIPER-TAZO 3.375 GM IV (PMX) 100 ML IVPB SCH (20:00)
[2018-11-06] MEDS ORDERED: METHYLPREDNISOLONE 125 MG INJ IV ONE (20:00)
[2018-11-06] MEDS ORDERED: VASOPRESSIN 60 UNIT in DEXTROSE 5% 57 ML IV SCH (20:30)
[2018-11-06] MEDS: ATORVASTATIN 40 MG TAB PO SCH (21:00)
[2018-11-06] MEDS ORDERED: SOD CHLORIDE 0.9% 250 ML IV ONE ×2 (21:00)
[2018-11-06] MEDS ORDERED: CHLORDIAZEPOXIDE 25 MG CAP PO SCH (21:00)
[2018-11-06] MEDS ORDERED: DOPamine-D5W 1.6 MG/ML 250 ML IV SCH (21:30)
[2018-11-06] MEDS ORDERED: DOPamine 1,600 MG in DEXTROSE 5% 210 ML IV SCH (21:30)
[2018-11-06] MEDS ORDERED: EPINEPHrine 4 MG in SOD CHLORIDE 0.9% 246 ML IV SCH (22:00)
--- NOTE | 2018-11-07 21:36 | DES ---
DATE OF ADMISSION: 11/03/2018 DATE OF : 11/06/2018 DATE OF : 11/06/2018 ____ 1. ____ 2. Hypotension, likely secondary to cardiogenic shock ____. 3. Delirium tremens, likely from chronic alcohol withdrawal, for which the patient required Ativan _ ___ 4. ____ ST-elevation myocardial infarction ____ CONSULTANTS ON CASE: Dr. Kary Polk for cardiology, ____ ____ TIME OF : Please review pronouncement note for the exact time of . FINAL DIAGNOSES: 1. Inferior wall ST-elevation myocardial infarction secondary to 100% occluded RCA with large amount of thrombus ____ difficult, but successful PCI. 2. Hypotension, likely cardiogenic shock, complicated by sedating medications. 3. Acute encephalopathy, secondary to delirium tremens. 4. Acute renal insufficiency, likely secondary to acute tubular necrosis from hypoperfusion as well as ____ injury as well as a severe rhabdomyolysis ____ patient presented. 5. Chronic obstructive pulmonary disease which has emphysema by history. 6. Severe rhabdomyolysis. 7. Dyslipidemia. 8. Transaminitis, likely secondary to hypoperfusion. 9. History of tobacco use and possibly heavy alcohol use. SHORT HOSPITALIZATION COURSE: Full details are available in the chart for review. In summary, this patient had gone to an urgent care from where he was referred to the emergency room because of concer ns for chest pain and an ST-elevation myocardial infarction. When he got to the ER, code STEMI was i mmediately activated and the patient was taken [facility] where he underwent a successful PCI. However, the patient had large amount of thrombus and apparently it was a difficult procedure, but he seemed to ____ perfusion. He did have severe troponin elevations to 300 which was suggestive of a l arge myocardial injury and post procedure his troponin level never actually went down to 0 or normal. He was hence monitored closely in the intensive care unit. ____ in the intensive care unit through out his hospitalization. On day 2 of his admission, he seems minimally improved, but again we could not get a detailed history from him. We were never able to get detailed information from the patient due to his active presentation and subsequent complication of delirium tremens. But on day 2, he es sentially improved a little bit, but he continued to be observed in the ICU, but toward the end of th e day became increasingly confused, pulling at lines and trying to get out of bed. Based on this, we started him on a p.r.n. benzodiazepine therapy to keep him calm but he eventually required Precedex infusion to keep him calm and cooperative. By day 3, he was calmer and we tried to wean him off the Precedex, but unfortunately his condition again recurs and he has to be started back on Precedex. By day 4 of admission, he had become hypotensive and was requiring albumin infusion for volume expansio n and was started on gentle IV fluid hydration also because he was deemed an aspiration risk. Again, we began to see if we could back on the sedation, but this was not very successful due again him com ing confused and agitated. Hence, sedation was being weaned as much as possible, but he was also sta rted on pressor support for. He has pressor support on standby for hypertension. However, despite a ggressive measures on supportive and close 1 on 1 monitoring and supportive care, the patient eventua lly went into respiratory failure and required endotracheal intubation. Not long after that, ____ th at the patient left ____ and had to be coded. Unfortunately, despite aggressive therapy according to ACLS protocol, the patient eventually . Please review the code blue notes and nursing notes for further details. Right now preliminary cause of was a large ST-elevation myocardial infarc tion, superimposed delirium tremens likely secondary to alcohol withdrawal. Dictated By: BECKI CANTU MD BA/NTS Conf#: [id number] DID#: [id number] CC: KARY POLK MD;*EndCC*
--- NOTE | 2018-11-09 15:01 | RADRPT ---
Vent Rate: 118 bpm RR Interval: 0 msec NE Interval: 104 msec QRS Duration: 92 msec QT Interval: 366 msec QTC Interval: 513 msec P-R-T Gilbert: 0 - -58 - 41 degrees Sinus tachycardia with short NE Left axis deviation Incomplete right bundle branch block Inferior infarct , possibly acute Anterolateral infarct , age undetermined ACUTE CT Consider right ventricular involvement in acute inferior infarct Abnormal ECG Electronically Signed By: Kvng Daily
== END 2018-11-06 22:50 | disposition expired | DRG 246 ==
LOC: E/R 09:47 → SDS 09:55 → CCL 09:55 → ICU 10:06
PROVIDERS: ADMIT Internal Medicine Interventional Cardiology; ATTEND Family Medicine
PROC: 02C13ZZ Extirpation of Matter from Coronary Artery, Two Arteries, Percutaneous Approach (ICD-10-PCS; 2018-11-03)
PROC: 4A023N7 Measurement of Cardiac Sampling and Pressure, Left Heart, Percutaneous Approach (ICD-10-PCS; 2018-11-03)
PROC: B211YZZ Fluoroscopy of Multiple Coronary Arteries using Other Contrast (ICD-10-PCS; 2018-11-03)
PROC: 3E07317 Introduction of Other Thrombolytic into Coronary Artery, Percutaneous Approach (ICD-10-PCS; 2018-11-03)
PROC: 027136Z Dilation of Coronary Artery, Two Arteries with Three Drug-eluting Intraluminal Devices, Percutaneous Approach (ICD-10-PCS; principal; 2018-11-03 10:00)
PROC: 0BH18EZ Insertion of Endotracheal Airway into Trachea, Via Natural or Artificial Opening Endoscopic (ICD-10-PCS; 2018-11-06)
PROC: 06HY33Z Insertion of Infusion Device into Lower Vein, Percutaneous Approach (ICD-10-PCS; 2018-11-06)
PROC: 5A1935Z Respiratory Ventilation, Less than 24 Consecutive Hours (ICD-10-PCS; 2018-11-06)
DX: I21.19 ST elevation (STEMI) myocardial infarction involving other coronary artery of inferior wall (principal); N17.0 Acute kidney failure with tubular necrosis; J96.01 Acute respiratory failure with hypoxia; M62.82 Rhabdomyolysis; F10.231 Alcohol dependence with withdrawal delirium; I42.9 Cardiomyopathy, unspecified; E78.5 Hyperlipidemia, unspecified; E87.5 Hyperkalemia; R57.0 Cardiogenic shock; G31.2 Degeneration of nervous system due to alcohol; J43.9 Emphysema, unspecified; R74.0 Nonspecific elevation of levels of transaminase and lactic acid dehydrogenase [LDH]; Z86.718 Personal history of other venous thrombosis and embolism; Z87.891 Personal history of nicotine dependence
CPT/HCPCS: 31500; 36415; 36600; 71045; 74018; 76775; 80048; 80053; 80061; 80162; 80307; 81003; 82550; 82553; 82803; 82962; 83036; 83735; 83880; 84439; 84443; 84484; 85025; 85610; 85730; 86704; 86706; 86803; 87081; 87340; 92928; 92929; 92950; 93005; 93306; 93458; 93970; 94002; J0583; C1725; C1757; C1874; C1876; C1887; C1894; C9113; C9606; J0131; J0171; J0461; J1265; J1327; J1630; J1644; J1650; J1940; J2060; J2250; J2270; J2405; J2543; J2930; J2997; J3010; J3411; J7040; J7042; J7050; J7070; P9047; Q9967